=== PATIENT | female | born 1945 | race Caucasian/White ===

== ENCOUNTER → 2016-11-23 | Outpatient (CLI) | payer MEDICARE, OTHER ==
--- NOTE | 2016-11-24 09:39 | MM ---
Reason for exam: screening (asymptomatic). Last mammogram was performed 1 year and 1 month ago. History: Patient is postmenopausal. Benign excisional biopsy of the left breast, 2001. Took estrogen for 1 year beginning at age 55. Physical Findings: A clinical breast exam by your physician is recommended on an annual basis and results should be correlated with mammographic findings. MG 3D Screening Mammo W/Cad Bilateral CC and MLO view(s) were taken. Prior study comparison: November 03, 2015, bilateral MG screening mammo w CAD. September 26, 2014, right breast MG work up mamm w CAD RT. The breast tissue is almost entirely fat. There is chronic nodularity in the left breast. Right sided retroareolar nodule has enlarged. This finding is increased in size when compared with previous exams. ASSESSMENT: Incomplete: need additional imaging evaluation, BI-RAD 0 RECOMMENDATION: Ultrasound of the right breast. [facility] will attempt to contact patient to return for ultrasound.
== END | disposition home or self-care (01) ==
LOC: RADMAMWWP 10:41
PROVIDERS: ATTEND Family Medicine
DX: Z12.31 Encounter for screening mammogram for malignant neoplasm of breast (principal)
CPT/HCPCS: 77063; G0202

== ENCOUNTER → 2016-11-28 | Outpatient (CLI) | payer MEDICARE, OTHER ==
[2016-11-28 18:49] LABS: ALT 34 U/L (9-52); AST 26 U/L (14-36); Alkaline Phosphatase 70 U/L (38-126); Anion Gap 11 mmol/L; Blood Urea Nitrogen 19 mg/dL (7-17); Calcium 9.4 mg/dL (8.4-10.2); Carbon Dioxide 28 mmol/L (22-30); Chloride 104 mmol/L (98-107); Cholesterol 170 mg/dL (<200); Glucose 110 mg/dL (74-99); HDL Cholesterol 48 mg/dL (40-60); Non-African American GFR(MDRD) >60 (>60 ml/min/1.73 sqM); Potassium 3.9 mmol/L (3.5-5.1); Sodium 143 mmol/L (137-145); Total Bilirubin 0.6 mg/dL (0.2-1.3); Triglycerides 158 mg/dL (<150)
[2016-11-28 18:54] LABS: Aty Lym Flag Moderate; CH 29.4; CHCM 34.1; HCT 41.3 % (34.0-46.0); HDW 2.96; HGB 14.6 gm/dL (11.4-16.0); MCH 30.7 pg (25.0-35.0); MCHC 35.4 g/dL (31.0-37.0); MCV 86.6 fL (80.0-100.0); MPO Flag Slight; Mean Platelet Volume 7.4; RBC 4.77 m/uL (3.80-5.40); RDW 13.9 % (11.5-15.5); WBC 6.3 k/uL (3.8-10.6); WBC (Perox) 6.34
[2016-11-28 20:19] LABS: Add Differential Manual Differential
[2016-11-28 20:20] LABS: Nucleated Red Blood Cells 0 /100 WBC (0-0); Total Cells Counted 100
[2016-11-28 20:21] LABS: Manual Review Performed; RBC Morphology Normal
[2016-11-28 21:16] LABS: Hemoglobin A1C 5.3 % (4.2-6.1)
== END ==
LOC: MMGSC 09:48
PROVIDERS: ATTEND Family Medicine
DX: I10 Essential (primary) hypertension (principal); E78.5 Hyperlipidemia, unspecified; R73.02 Impaired glucose tolerance (oral)
CPT/HCPCS: 36415; 80053; 80061; 83036; 84439; 84443; 85025

== ENCOUNTER → 2016-11-29 | Outpatient (CLI) | payer MEDICARE, OTHER ==
--- NOTE | 2016-11-29 10:46 | USB ---
Reason for exam: additional evaluation requested from abnormal screening. History: Patient is postmenopausal. Benign excisional biopsy of the left breast, 2001. Took estrogen for 1 year beginning at age 55. Physical Findings: Nurse Summary: left BB 6 o'clock 2cm x 0.5cm near lesion/mole behind posterior (nurse cw). US Breast Workup Limited EUSEBIO Right breast ultrasound demonstrates a 0.7 x 0.8 x 0.6cm oval, cystic lesion at 9 o'clock, subareolar region, benign, corresponds to the mammographic finding. Left breast ultrasound demonstrates no finding, BB at 6 o'clock. These results were verbally communicated with the patient and result sheet given to the patient on 11/29/16. ASSESSMENT: Benign, BI-RAD 2 RECOMMENDATION: Return to routine screening mammogram schedule for both breasts. Manage on a clinical basis with regard to any suspicious palpable abnormalities.
== END | disposition home or self-care (01) ==
LOC: RADUSWWP 09:19
PROVIDERS: ATTEND Family Medicine
DX: R92.8 Other abnormal and inconclusive findings on diagnostic imaging of breast (principal)

== ENCOUNTER → 2017-05-25 | Outpatient (CLI) | payer MEDICARE, OTHER ==
[2017-05-25 18:34] LABS: ALT 30 U/L (9-52); AST 27 U/L (14-36); Alkaline Phosphatase 59 U/L (38-126); Anion Gap 6 mmol/L; Blood Urea Nitrogen 20 mg/dL (7-17); Calcium 9.9 mg/dL (8.4-10.2); Carbon Dioxide 30 mmol/L (22-30); Chloride 103 mmol/L (98-107); Glucose 98 mg/dL (74-99); Non-African American GFR(MDRD) >60 (>60 ml/min/1.73 sqM); Potassium 4.2 mmol/L (3.5-5.1); Sodium 139 mmol/L (137-145); Total Bilirubin 0.3 mg/dL (0.2-1.3)
== END ==
LOC: MMGSC 11:41
PROVIDERS: ATTEND Family Medicine
DX: Z51.81 Encounter for therapeutic drug level monitoring (principal)
CPT/HCPCS: 36415; 80053

== ENCOUNTER 2017-06-05 09:42 | Observation (INO) | payer MEDICARE, OTHER ==
--- NOTE | 2017-06-05 10:41 | ED ---
GI Bleed HPI - General Chief complaint: GI Bleed Stated complaint: rectal bleeding, abdominal pain, diarrhea Time Seen by Provider: 06/05/17 10:00 Source: patient, RN notes reviewed Mode of arrival: ambulatory Limitations: no limitations - History of Present Illness Initial comments: This is a 71-year-old female who states she had the onset of diarrhea last evening she had multiple episodes and then this morning had 3 episodes of bright red blood per rectum. She has some lower abdominal cramps no fevers chills or sweats she does feel somewhat weak no other symptoms reported. No history of diverticulitis no history of previous bowel surgeries. She states she has any history of hemorrhoids in the past. No other complaints this time MD complaint: gross hematochezia - Related Data Home Medications Medication Instructions Recorded Confirmed Albuterol Inhaler [Ventolin Hfa 1 - 2 puff INHALATION RT-Q6H PRN 06/05/17 Inhaler] Calcium Carbonate/Vitamin D3 1 tab PO DAILY 06/05/17 06/05/17 [Calcium 600-Vit D3 400 Caplet] Cetirizine HCl [Zyrtec] 10 mg PO HS 06/05/17 06/05/17 Fluticasone Nasal [place] [Flonase 1 spr EA NOSTRIL DAILY 06/05/17 06/05/17 Nasal [place]] Fluticasone Propionate [Flovent 1 puff INHALATION RT-DAILY 06/05/17 06/05/17 Hfa 44 mcg] Lisinopril-Hctz 20-25 mg 1 tab PO DAILY 06/05/17 06/05/17 [Zestoretic 20-25] Lovastatin [Mevacor] 20 mg PO HS 06/05/17 06/05/17 Multivitamins, Thera [Multivitamin 1 tab PO DAILY 06/05/17 06/05/17 (formulary)] [place]-3 Fatty Acids [[place]-3] 1,000 mg PO BID 06/05/17 06/05/17 Vitamin B Complex 1 cap PO DAILY 06/05/17 06/05/17 Allergies Allergy/AdvReac Type Severity Reaction Status Date / Time amoxicillin trihydrate Allergy Unknown Verified 06/05/17 10:07 [From Augmentin] potassium clavulanate Allergy Unknown Verified 06/05/17 10:07 [From Augmentin] Review of Systems ROS Statement: Those systems with pertinent positive or pertinent negative responses have been documented in the HPI. ROS Other: All systems not noted in ROS Statement are negative. Past Medical History Past Medical History: Asthma, Hypertension Additional Past Medical History / Comment(s): sciatica History of Any Multi-Drug Resistant Organisms: None Reported Past Surgical History: No Surgical Hx Reported Past Psychological History: No Psychological Hx Reported Smoking Status: Former smoker Past Alcohol Use History: None Reported Past Drug Use History: None Reported General Exam - General Exam Comments Initial Comments: This is a well-developed well-nourished awake alert oriented 3 female Limitations: no limitations General appearance: alert, in no apparent distress Head exam: Present: atraumatic, normocephalic, normal inspection Eye exam: Present: normal appearance, PERRL, EOMI. Absent: scleral icterus, conjunctival injection, periorbital swelling ENT exam: Present: mucous membranes dry Neck exam: Present: normal inspection. Absent: tenderness, meningismus, lymphadenopathy Respiratory exam: Present: normal lung sounds bilaterally. Absent: respiratory distress, wheezes, rales, rhonchi, stridor Cardiovascular Exam: Present: regular rate, normal rhythm, normal heart sounds. Absent: systolic murmur, diastolic murmur, rubs, gallop, clicks GI/Abdominal exam: Present: soft, normal bowel sounds, other (Mild discomfort to palpation no guarding rebound masses or bruits). Absent: distended, tenderness, guarding, rebound, rigid Rectal exam: Present: heme (+) stool. Absent: mass, tenderness Extremities exam: Present: normal inspection, full ROM, normal capillary refill. Absent: tenderness, pedal edema, joint swelling, calf tenderness Back exam: Present: normal inspection Neurological exam: Present: alert, oriented X3, CN II-XII intact Psychiatric exam: Present: normal affect, normal mood Skin exam: Present: warm, dry, intact, normal color. Absent: rash Course Vital Signs 06/05/17 06/05/17 06/05/17 09:45 09:55 10:25 Temperature 97.1 F L Pulse Rate 101 H 112 H 94 Respiratory 17 Rate Blood Pressure 195/79 144/81 146/78 O2 Sat by Pulse 95 95 96 Oximetry 06/05/17 06/05/17 06/05/17 11:18 12:18 13:05 Temperature Pulse Rate 70 64 71 Respiratory Rate Blood Pressure 159/72 130/62 132/75 O2 Sat by Pulse 97 99 Oximetry Medical Decision Making - Medical Decision Making I did discuss [employer] the patient and her as well as with the hospitalist patient will be admitted with consultation by GI. - Lab Data Result diagrams: 06/05/17 10:01 06/05/17 10:01 Lab Results 06/05/17 06/05/17 06/05/17 Range/Units 10:01 10:01 10:01 WBC 10.7 H (3.8-10.6) k/uL RBC 4.96 (3.80-5.40) m/uL Hgb 14.4 (11.4-16.0) gm/dL Hct 42.5 (34.0-46.0) % MCV 85.7 (80.0-100.0) fL MCH 29.0 (25.0-35.0) pg MCHC 33.8 (31.0-37.0) g/dL RDW 13.6 (11.5-15.5) % Plt Count 210 (150-450) k/uL Neutrophils % (Manual) 89 % Lymphocytes % (Manual) 11 % Neutrophils # (Manual) 9.52 H (1.3-7.7) k/uL Lymphocytes # (Manual) 1.18 (1.0-4.8) k/uL Nucleated RBCs 0 (0-0) /100 WBC Polychromasia Present PT (9.0-12.0) sec INR (<1.2) APTT (22.0-30.0) sec Sodium 140 (137-145) mmol/L Potassium 4.1 (3.5-5.1) mmol/L Chloride 103 (98-107) mmol/L Carbon Dioxide 28 (22-30) mmol/L Anion Gap 9 mmol/L BUN 21 H (7-17) mg/dL Creatinine 0.80 (0.52-1.04) mg/dL Est GFR (MDRD) Af Amer >60 (>60 ml/min/1.73 sqM) Est GFR (MDRD) Non-Af >60 (>60 ml/min/1.73 sqM) Glucose 144 H (74-99) mg/dL Calcium 9.5 (8.4-10.2) mg/dL Total Bilirubin 0.6 (0.2-1.3) mg/dL AST 25 (14-36) U/L ALT 35 (9-52) U/L Alkaline Phosphatase 71 (38-126) U/L Total Creatine Kinase 38 (30-135) U/L CK-MB (CK-2) 0.6 (0.0-2.4) ng/mL CK-MB (CK-2) Rel Index 1.6 Troponin I <0.012 (0.000-0.034) ng/mL Total Protein 7.3 (6.3-8.2) g/dL Albumin 4.1 (3.5-5.0) g/dL Stool Occult Blood (Negative) Blood Type Blood Type Recheck Antibody Screen Spec Expiration Date 06/05/17 06/05/17 06/05/17 Range/Units 10:01 10:01 10:56 WBC (3.8-10.6) k/uL RBC (3.80-5.40) m/uL Hgb (11.4-16.0) gm/dL Hct (34.0-46.0) % MCV (80.0-100.0) fL MCH (25.0-35.0) pg MCHC (31.0-37.0) g/dL RDW (11.5-15.5) % Plt Count (150-450) k/uL Neutrophils % (Manual) % Lymphocytes % (Manual) % Neutrophils # (Manual) (1.3-7.7) k/uL Lymphocytes # (Manual) (1.0-4.8) k/uL Nucleated RBCs (0-0) /100 WBC Polychromasia PT 10.1 (9.0-12.0) sec INR 1.0 (<1.2) APTT 23.8 (22.0-30.0) sec Sodium (137-145) mmol/L Potassium (3.5-5.1) mmol/L Chloride (98-107) mmol/L Carbon Dioxide (22-30) mmol/L Anion Gap mmol/L BUN (7-17) mg/dL Creatinine (0.52-1.04) mg/dL Est GFR (MDRD) Af Amer (>60 ml/min/1.73 sqM) Est GFR (MDRD) Non-Af (>60 ml/min/1.73 sqM) Glucose (74-99) mg/dL Calcium (8.4-10.2) mg/dL Total Bilirubin (0.2-1.3) mg/dL AST (14-36) U/L ALT (9-52) U/L Alkaline Phosphatase (38-126) U/L Total Creatine Kinase (30-135) U/L CK-MB (CK-2) (0.0-2.4) ng/mL CK-MB (CK-2) Rel Index Troponin I (0.000-0.034) ng/mL Total Protein (6.3-8.2) g/dL Albumin (3.5-5.0) g/dL Stool Occult Blood Positive H (Negative) Blood Type A Positive Blood Type Recheck CABO Indicated Antibody Screen NEGATIVE Spec Expiration Date 06/05/17 1100 - Radiology Data Radiology results: report reviewed (I did review the imaging and reports no acute findings), image reviewed Disposition Clinical Impression: GI bleed Disposition: ADMITTED IP TO THIS [facility] Condition: Stable Referrals: Laura Mcknight MD [Primary Care Provider] - 1-2 days
[2017-06-05 10:51] LABS: HCT 42.5 % (34.0-46.0); HGB 14.4 gm/dL (11.4-16.0); MCHC 33.8 g/dL (31.0-37.0); MCV 85.7 fL (80.0-100.0); Mean Platelet Volume 6.9; Platelet Count 210 k/uL (150-450); RBC 4.96 m/uL (3.80-5.40); RDW 13.6 % (11.5-15.5); WBC 10.7 k/uL (3.8-10.6)
[2017-06-05 10:56] LABS: ALT 35 U/L (9-52); AST 25 U/L (14-36); Albumin 4.1 g/dL (3.5-5.0); Alkaline Phosphatase 71 U/L (38-126); Anion Gap 9 mmol/L; Blood Urea Nitrogen 21 mg/dL (7-17); Calcium 9.5 mg/dL (8.4-10.2); Carbon Dioxide 28 mmol/L (22-30); Chloride 103 mmol/L (98-107); Glucose 144 mg/dL (74-99); Potassium 4.1 mmol/L (3.5-5.1); Sodium 140 mmol/L (137-145); Total Bilirubin 0.6 mg/dL (0.2-1.3); Total Protein 7.3 g/dL (6.3-8.2)
[2017-06-05] MEDS ORDERED: ACETAMINOPHEN IV (For NPO) 1,000 MG in SALINE 1 100ML.BAG IVPB STA (10:56)
[2017-06-05 11:03] LABS: Partial Thromboplastin Time 23.8 sec (22.0-30.0); Prothrombin Time 10.1 sec (9.0-12.0)
[2017-06-05 11:06] LABS: Lymphocytes # (M) 1.18 k/uL (1.0-4.8); Neutrophils # (M) 9.52 k/uL (1.3-7.7); Neutrophils % (M) 89 %; Nucleated Red Blood Cells 0 /100 WBC (0-0); Polychromasia Present; Total Cells Counted 100
[2017-06-05 11:15] LABS: Creatine Kinase 38 U/L (30-135)
[2017-06-05 11:28] LABS: Creatine Kinase MB 0.6 ng/mL (0.0-2.4); Troponin I <0.012 ng/mL (0.000-0.034)
--- NOTE | 2017-06-05 11:28 | XR ---
EXAMINATION TYPE: XR abdomen 1V DATE OF EXAM: 06/05/2017 COMPARISON: NONE HISTORY: Diarrhea Rectal bleeding. TECHNIQUE: 2 views FINDINGS: There is no sign of intestinal obstruction or pneumoperitoneum. Fecal pattern is normal. Th ere are chest leads. There are no pathologic calcifications over the kidneys. There is no sign of a m ass. IMPRESSION: Nonacute abdomen.
--- NOTE | 2017-06-05 11:29 | XR ---
EXAMINATION TYPE: XR chest 2V DATE OF EXAM: 06/05/2017 COMPARISON: NONE HISTORY: Diarrhea and rectal bleeding. Weakness TECHNIQUE: Frontal and lateral views of the chest are obtained. FINDINGS: Heart and mediastinum are normal. Lungs are clear. Diaphragm is normal. There are chest le ads. Bony thorax is intact. IMPRESSION: No active cardiopulmonary disease.
[2017-06-05] MEDS ORDERED: NALOXONE 0.4 MG/ML 1 ML VIAL IV PRN ×2 (13:48→14:23)
[2017-06-05] MEDS ORDERED: traMADol 50 MG TAB PO PRN (14:23)
[2017-06-05] MEDS ORDERED: ACETAMINOPHEN TAB 325 MG TAB PO PRN (14:23)
--- NOTE | 2017-06-05 15:27 | P.HPIM ---
History of Present Illness H&P Date: 06/05/17 Chief Complaint: Diarrhea and GI bleeding This is a 71-year-old female who states she had the onset of diarrhea last evening, she had multiple episodes and then this morning had 3 episodes of bright red blood per rectum. She has some lower abdominal cramps associated with the diarrhea. No fevers but she did have some chills. She does feel somewhat weak and ''pale''. Patient has been constipated in the past 2 weeks. She has history of hemorrhoids and did have some bleeding from them in the past. Her last colonoscopy was 5 years ago. She denied having any chest pain or shortness of breath, dizziness, nausea or vomiting, urinary symptoms. Review of Systems 12 point review of system was performed, negative except for HPI Past Medical History Past Medical History: Asthma, Hypertension Additional Past Medical History / Comment(s): sciatica History of Any Multi-Drug Resistant Organisms: None Reported Past Surgical History: No Surgical Hx Reported Past Psychological History: No Psychological Hx Reported Smoking Status: Former smoker Past Alcohol Use History: None Reported Past Drug Use History: None Reported Medications and Allergies Home Medications Medication Instructions Recorded Confirmed Type Albuterol Inhaler [Ventolin Hfa 1 - 2 puff INHALATION RT-Q6H PRN 06/05/17 History Inhaler] Calcium Carbonate/Vitamin D3 1 tab PO DAILY 06/05/17 06/05/17 History [Calcium 600-Vit D3 400 Caplet] Cetirizine HCl [Zyrtec] 10 mg PO HS 06/05/17 06/05/17 History Fluticasone Nasal [place] [Flonase 1 spr EA NOSTRIL DAILY 06/05/17 06/05/17 History Nasal [place]] Fluticasone Propionate [Flovent 1 puff INHALATION RT-DAILY 06/05/17 06/05/17 History Hfa 44 mcg] Lisinopril-Hctz 20-25 mg 1 tab PO DAILY 06/05/17 06/05/17 History [Zestoretic 20-25] Lovastatin [Mevacor] 20 mg PO HS 06/05/17 06/05/17 History Multivitamins, Thera [Multivitamin 1 tab PO DAILY 06/05/17 06/05/17 History (formulary)] [place]-3 Fatty Acids [[place]-3] 1,000 mg PO BID 06/05/17 06/05/17 History Vitamin B Complex 1 cap PO DAILY 06/05/17 06/05/17 History Allergies Allergy/AdvReac Type Severity Reaction Status Date / Time amoxicillin trihydrate Allergy Unknown Verified 06/05/17 10:07 [From Augmentin] potassium clavulanate Allergy Unknown Verified 06/05/17 10:07 [From Augmentin] Physical Exam Vitals: Vital Signs Temp Pulse Resp BP Pulse Ox 06/05/17 14:33 97.4 F L 79 16 153/67 97 06/05/17 14:05 96 149/70 95 06/05/17 13:05 71 132/75 06/05/17 12:18 64 130/62 99 06/05/17 11:18 70 159/72 97 06/05/17 10:25 94 146/78 96 06/05/17 09:55 112 H 144/81 95 06/05/17 09:45 97.1 F L 101 H 17 195/79 95 Intake and Output 06/05/17 06/05/17 06/05/17 06:59 14:59 22:59 Other: Weight 100.698 kg Patient Weight 06/06/17 06:59 Weight 100.698 kg Constitutional: No acute distress, conversant, pleasant Eyes:Anicteric sclerae, moist conjunctiva, no lid-lag, PERRLA, ENMT: Oropharynx clear, no erythema, exudates Neck: Supple, FROM, no masses, or JVD, No carotid bruits, No thyromegaly Lungs: Clear to auscultation, Clear to percussion, Normal respiratory effort, no accessory muscle use Cardiovascular: Heart regular in rate and rhythm, No murmurs, gallops, or rubs, No peripheral edema Abdominal: Soft, Nontender, no guarding, rebound or rigidity, Normoactive bowel sounds, No hepatomegaly, No splenomegaly, No palpable mass Skin: Normal temperature, tone, texture, turgor, no induration, No subcutaneous nodules, No rash, lesions, No ulcers Extremities: No digital cyanosis, No clubbing, Pedal pulses intact and symmetrical, Radial pulses intact and symmetrical, No calf tenderness Psychiatric: Alert and oriented to person, place and time, appropriate affect, intact judgement Neuro: Muscles Strength 5/5 in all 4 extremities, Sensation to light touch grossly present throughout, Cranial nerves II-XII grossly intact, no focal sensory deficits Results CBC & Chem 7: 06/05/17 10:01 06/05/17 10:01 Labs: Abnormal Lab Results - Last 24 Hours (Table) 06/05/17 06/05/17 06/05/17 Range/Units 10:01 10:01 10:56 WBC 10.7 H (3.8-10.6) k/uL Neutrophils # (Manual) 9.52 H (1.3-7.7) k/uL BUN 21 H (7-17) mg/dL Glucose 144 H (74-99) mg/dL Stool Occult Blood Positive H (Negative) Assessment and Plan Plan: #1 Acute diarrhea/lower GI bleeding: Possible infectious etiology versus hemorrhoidal bleeding/diverticulosis Admit to MedSurg IV fluids Cycle H&H Consult GI Currently hemoglobin is stable Labs were reviewed #2 Asthma, Hypertension: Stable Home medications #3 DVT prophylaxis SCDs
[2017-06-05 16:14] LABS: HCT 38.8 % (34.0-46.0); HGB 13.3 gm/dL (11.4-16.0); MCH 29.6 pg (25.0-35.0); MCHC 34.3 g/dL (31.0-37.0); MCV 86.4 fL (80.0-100.0); Mean Platelet Volume 6.9; Platelet Count 191 k/uL (150-450); RDW 13.6 % (11.5-15.5); WBC 9.6 k/uL (3.8-10.6)
[2017-06-05] MEDS: SODIUM CHLORIDE 0.9% 1,000 ML IV SCH ×2 (16:44→23:17)
[2017-06-05 16:55] VITALS: BMI 36.9
[2017-06-05] MEDS: IPRATROPIUM-ALBUTEROL 3 ML NEB INHALATION SCH (20:57)
[2017-06-05] MEDS: BUDESONIDE 0.5 MG/2 ML NEBU INHALATION SCH (20:57)
[2017-06-05] MEDS ORDERED: NON-FORMULARY DRUG (Omega-3 Fatty Acids [Omega-3] 1,000 MG) PO SCH (21:00)
[2017-06-05] MEDS: LORATADINE 10 MG TAB PO SCH (21:17)
[2017-06-05] MEDS: ATORVASTATIN 10 MG TAB PO SCH (21:17)
[2017-06-05] MEDS: PANTOPRAZOLE 40 MG/10 ML VIAL IV SCH (21:17)
[2017-06-05 22:37] LABS: HCT 39.1 % (34.0-46.0); HGB 13.3 gm/dL (11.4-16.0); MCH 29.5 pg (25.0-35.0); MCHC 33.9 g/dL (31.0-37.0); MCV 86.8 fL (80.0-100.0); Mean Platelet Volume 6.9; Platelet Count 187 k/uL (150-450); RBC 4.51 m/uL (3.80-5.40); RDW 13.8 % (11.5-15.5); WBC 10.4 k/uL (3.8-10.6)
[2017-06-06] MEDS: IPRATROPIUM-ALBUTEROL 3 ML NEB INHALATION SCH ×4 (06:29→18:55)
[2017-06-06 06:54] LABS: ALT 32 U/L (9-52); AST 17 U/L (14-36); Albumin 3.4 g/dL (3.5-5.0); Alkaline Phosphatase 57 U/L (38-126); Anion Gap 4 mmol/L; Blood Urea Nitrogen 17 mg/dL (7-17); Calcium 8.7 mg/dL (8.4-10.2); Carbon Dioxide 33 mmol/L (22-30); Chloride 103 mmol/L (98-107); Glucose 102 mg/dL (74-99); Magnesium 1.8 mg/dL (1.6-2.3); Phosphorus 3.7 mg/dL (2.5-4.5); Sodium 140 mmol/L (137-145); Total Bilirubin 0.6 mg/dL (0.2-1.3)
[2017-06-06 06:55] LABS: Potassium 4.1 mmol/L (3.5-5.1)
[2017-06-06 06:57] LABS: HCT 37.8 % (34.0-46.0); HGB 12.8 gm/dL (11.4-16.0); MCH 29.6 pg (25.0-35.0); MCHC 33.8 g/dL (31.0-37.0); MCV 87.5 fL (80.0-100.0); Mean Platelet Volume 7.1; Platelet Count 181 k/uL (150-450); RBC 4.32 m/uL (3.80-5.40); RDW 13.7 % (11.5-15.5); WBC 9.1 k/uL (3.8-10.6)
[2017-06-06] MEDS: LISINOPRIL-HCTZ 20-25 MG 1 EACH TAB PO SCH (07:59)
[2017-06-06] MEDS: B COMPLEX-VIT C-VIT E-ZINC 1 EACH TAB PO SCH (07:59)
[2017-06-06] MEDS: PANTOPRAZOLE 40 MG/10 ML VIAL IV SCH ×2 (07:59→19:33)
[2017-06-06] MEDS: FLUTICASONE 50MCG/SPRAY NASAL 16GM EA NOSTRIL SCH (07:59)
[2017-06-06] MEDS: CALCIUM CARB-VIT D 500MG-200UN 1 EACH TAB PO SCH (07:59)
[2017-06-06] MEDS: MULTIVITAMINS, THERA 1 EACH TAB PO SCH (07:59)
[2017-06-06] MEDS: BUDESONIDE 0.5 MG/2 ML NEBU INHALATION SCH ×2 (08:27→18:55)
[2017-06-06 09:47] LABS: Eosinophils # (M) 0.09 k/uL (0-0.7); Lymphocytes # (M) 1.73 k/uL (1.0-4.8); Monocytes # (M) 0.09 k/uL (0-1.0); Neutrophils # (M) 7.19 k/uL (1.3-7.7); Neutrophils % (M) 79 %; Nucleated Red Blood Cells 0 /100 WBC (0-0); Total Cells Counted 100
[2017-06-06 09:48] LABS: Poikilocytosis (M) Present
--- NOTE | 2017-06-06 15:12 | P.PN ---
Subjective Progress Note Date: 06/06/17 Principal diagnosis: BRBPR Still having bloody bowel movements, had 2 this morning. No dizziness or weakness. No shortness of breath. Objective - Vital Signs Vital signs: Vital Signs Temp 97.2 F L 06/06/17 08:00 Pulse 84 06/06/17 13:37 Resp 16 06/06/17 12:00 BP 152/82 06/06/17 12:00 Pulse Ox 95 06/06/17 12:00 Intake & Output 06/05/17 06/06/17 06/06/17 18:59 06:59 18:59 Intake Total 240 900 325 Balance 240 900 325 Weight 100.7 kg 100.8 kg Intake: Intake, IV Titration 900 Amount Sodium Chloride 0.9% 1, 900 000 ml @ 100 mls/hr IV . Q10H [facility] Rx#:[id number] Oral 240 325 Other: Voiding Method Toilet Toilet # Voids 2 1 1 # Bowel Movements 1 - Exam Constitutional: No acute distress, conversant, pleasant Eyes:Anicteric sclerae, moist conjunctiva, no lid-lag, PERRLA, ENMT: Oropharynx clear, no erythema, exudates Neck: Supple, FROM, no masses, or JVD, No carotid bruits, No thyromegaly Lungs: Clear to auscultation, Clear to percussion, Normal respiratory effort, no accessory muscle use Cardiovascular: Heart regular in rate and rhythm, No murmurs, gallops, or rubs, No peripheral edema Abdominal: Soft, Nontender, no guarding, rebound or rigidity, Normoactive bowel sounds, No hepatomegaly, No splenomegaly, No palpable mass Skin: Normal temperature, tone, texture, turgor, no induration, No subcutaneous nodules, No rash, lesions, No ulcers Extremities: No digital cyanosis, No clubbing, Pedal pulses intact and symmetrical, Radial pulses intact and symmetrical, No calf tenderness Psychiatric: Alert and oriented to person, place and time, appropriate affect, intact judgement Neuro: Muscles Strength 5/5 in all 4 extremities, Sensation to light touch grossly present throughout, Cranial nerves II-XII grossly intact, no focal sensory deficits - Labs CBC & Chem 7: 06/06/17 05:24 06/06/17 05:24 Labs: Abnormal Lab Results - Last 24 Hours (Table) 06/06/17 Range/Units 05:24 Carbon Dioxide 33 H (22-30) mmol/L Glucose 102 H (74-99) mg/dL Total Protein 6.0 L (6.3-8.2) g/dL Albumin 3.4 L (3.5-5.0) g/dL Assessment and Plan Plan: #1 Acute diarrhea/lower GI bleeding: Possible infectious etiology versus hemorrhoidal bleeding/diverticulosis Continue IV fluids Hgb stable Consult GI Labs were reviewed Recheck in am. #2 Asthma, Hypertension: Stable Home medications #3 DVT prophylaxis SCDs
[2017-06-06] MEDS: ATORVASTATIN 10 MG TAB PO SCH (19:33)
[2017-06-06] MEDS: LORATADINE 10 MG TAB PO SCH (19:33)
[2017-06-06] MEDS: SODIUM CHLORIDE 0.9% 1,000 ML IV SCH ×2 (19:36→21:08)
[2017-06-06] MEDS ORDERED: IPRATROPIUM-ALBUTEROL 3 ML NEB INHALATION PRN (19:48)
[2017-06-06] MEDS ORDERED: PEG 3350-NA SULF,BICARB,CL/KCL 4,000 ML BOTTLE PO ONE (20:51)
--- NOTE | 2017-06-06 23:50 | P.CONS ---
History of Present Illness - Reason for Consult Consult date: 06/06/17 Rectal bleeding - History of Present Illness The patient is a 71-year-old female who presented to the emergency room with the complaint of abdominal pain and diarrhea the night before that turned bloody on the day of admission. The patient's symptoms and bleeding has tapered off in the course of the day today. Her hemoglobin is relatively stable at 12.8. She denies any upper GI complaints, nausea, vomiting, or hematemesis. She had a prior colonoscopy more than 5 years ago. Review of Systems 12 point review of systems is, otherwise, not revealing. Past Medical History Past Medical History: Asthma, Hypertension Additional Past Medical History / Comment(s): sciatica History of Any Multi-Drug Resistant Organisms: None Reported Past Surgical History: No Surgical Hx Reported Past Psychological History: No Psychological Hx Reported Smoking Status: Former smoker Past Alcohol Use History: None Reported Past Drug Use History: None Reported Medications and Allergies Home Medications Medication Instructions Recorded Confirmed Type Albuterol Inhaler [Ventolin Hfa 1 - 2 puff INHALATION RT-Q6H PRN 06/05/17 History Inhaler] Calcium Carbonate/Vitamin D3 1 tab PO DAILY 06/05/17 06/05/17 History [Calcium 600-Vit D3 400 Caplet] Cetirizine HCl [Zyrtec] 10 mg PO HS 06/05/17 06/05/17 History Fluticasone Nasal [place] [Flonase 1 spr EA NOSTRIL DAILY 06/05/17 06/05/17 History Nasal [place]] Fluticasone Propionate [Flovent 1 puff INHALATION RT-DAILY 06/05/17 06/05/17 History Hfa 44 mcg] Lisinopril-Hctz 20-25 mg 1 tab PO DAILY 06/05/17 06/05/17 History [Zestoretic 20-25] Lovastatin [Mevacor] 20 mg PO HS 06/05/17 06/05/17 History Multivitamins, Thera [Multivitamin 1 tab PO DAILY 06/05/17 06/05/17 History (formulary)] [place]-3 Fatty Acids [[place]-3] 1,000 mg PO BID 06/05/17 06/05/17 History Vitamin B Complex 1 cap PO DAILY 06/05/17 06/05/17 History Allergies Allergy/AdvReac Type Severity Reaction Status Date / Time amoxicillin trihydrate Allergy Unknown Verified 06/05/17 10:07 [From Augmentin] potassium clavulanate Allergy Unknown Verified 06/05/17 10:07 [From Augmentin] Physical Exam Vitals: Vital Signs Temp Pulse Pulse Resp BP Pulse Ox 06/06/17 19:05 88 06/06/17 18:56 90 06/06/17 15:48 73 16 152/77 94 L 06/06/17 13:37 84 06/06/17 13:28 76 06/06/17 12:00 76 16 152/82 95 06/06/17 11:22 16 06/06/17 08:00 97.2 F L 92 16 148/76 95 06/06/17 04:00 98.8 F 73 16 127/67 94 L 06/06/17 00:00 97.1 F L 73 16 150/80 96 Intake and Output 06/06/17 06/06/17 06/06/17 06:59 14:59 22:59 Intake Total 900 325 600 Balance 900 325 600 Intake: Intake, IV Titration 900 Amount Sodium Chloride 0.9% 1, 900 000 ml @ 100 mls/hr IV . Q10H [facility] Rx#:[id number] Oral 325 600 Other: Voiding Method Toilet Toilet # Voids 1 1 Weight 100.8 kg General: Appeared stated age, very pleasant, in no acute distress Head and neck: Normocephalic and atraumatic. Conjunctivae pink and sclerae not icteric. Mucous membranes moist and pink. No masses in the neck or tracheal shifts Lungs: Clear to auscultation with no dullness to percussion Heart: Regular, no abnormal sounds, murmurs, gallops or friction rubs Abdomen: Soft, no masses, organomegalies or tenderness, bowel sounds present Extremities: No clubbing, cyanosis or edema Neurologic: Alert and oriented 3. Cranial nerves grossly intact. No gross sensory or motor abnormalities Results CBC & Chem 7: 06/06/17 05:24 06/06/17 05:24 Labs: Abnormal Lab Results - Last 24 Hours (Table) 06/06/17 Range/Units 05:24 Carbon Dioxide 33 H (22-30) mmol/L Glucose 102 H (74-99) mg/dL Total Protein 6.0 L (6.3-8.2) g/dL Albumin 3.4 L (3.5-5.0) g/dL Assessment and Plan Assessment: Abdominal pain and diarrhea with bleeding could be related to infectious, ischemic or self-limited colitis. Plan: Agree with your current management. I will go ahead and schedule the patient for colonoscopy for tomorrow. Further plans based on her course and findings.
[2017-06-07] MEDS: SODIUM CHLORIDE 0.9% 1,000 ML IV SCH ×2 (05:52→21:12)
[2017-06-07] MEDS: IPRATROPIUM-ALBUTEROL 3 ML NEB INHALATION SCH ×4 (08:04→19:41)
[2017-06-07] MEDS: BUDESONIDE 0.5 MG/2 ML NEBU INHALATION SCH ×2 (08:04→19:41)
[2017-06-07] MEDS ORDERED: PROPOFOL 10 MG/ML 20 ML VIAL IV ONE (14:10)
[2017-06-07] MEDS ORDERED: IV FLUID CONTINUATION 100 ML IV ONE (14:11)
[2017-06-07] MEDS ORDERED: IV FLUID CONTINUATION 1,000 ML IV ONE (14:34)
--- NOTE | 2017-06-07 15:03 | P.PCN ---
Date of Procedure: 06/07/17 Procedure(s) Performed: Procedure: Colonoscopy and biopsy. Preoperative diagnosis: Rectal bleeding. Postoperative diagnosis: Segmental colitis with skip areas involving the descending colon consistent with ischemic colitis, biopsies obtained to rule out other etiology (infectious/self limited). Preparation: GoLYTELY prep. Sedation: Was provided by anesthesia. Brief clinical history: The patient is a 71-year-old female who presented to the emergency room with the complaint of abdominal pain and diarrhea the night before that turned bloody on the day of admission. The patient's symptoms and bleeding has tapered off in the course of the day yesterday. Her hemoglobin is relatively stable at 12.8. She denies any upper GI complaints, nausea, vomiting , or hematemesis. She had a prior colonoscopy more than 5 years ago because of history of polyps. The details are summarized in the history and physical and dictated consultation and progress notes. This evaluation is to assess for a source of bleeding and to guide management. Procedure: With the patient on her left lateral decubitus position and after informed consent and adequate sedation, the perianal area was inspected and it did not show any fissures or fistulas. There were no masses felt on digital rectal examination. The Olympus CFQ 160L was used and was inserted in the rectum in the usual fashion and advanced to the cecum. There was a segment of colitis with skip areas involving the descending colon consistent with ischemic colitis with no evidence of ongoing bleeding. Proximal and distal to that segment the colon appeared normal. There were no significant polyps or other pathology. I obtained biopsies from the involved segment, then I retroflexed the endoscope in the rectum before the endoscope was withdrawn. The patient tolerated the procedure well. Plan: The patient was reassured and I discussed with her family. Will allow low -residue diet. Further plans based on her course. Would consider repeat colonoscopy in 5 years because of the history of polyps. She will follow up with you as planned.
--- NOTE | 2017-06-07 15:52 | P.PN ---
Subjective Progress Note Date: 06/07/17 Principal diagnosis: BRBPR The bleeding's amount has diminished. Objective - Vital Signs Vital signs: Vital Signs Temp 97.1 F L 06/07/17 04:00 Pulse 70 06/07/17 12:00 Resp 16 06/07/17 12:00 BP 148/66 06/07/17 12:00 Pulse Ox 96 06/07/17 12:00 Intake & Output 06/06/17 06/07/17 06/07/17 18:59 06:59 18:59 Intake Total 925 4200 200 Balance 925 4200 200 Weight 101.2 kg Intake: IV 200 Intake, IV Titration 1200 Amount Sodium Chloride 0.9% 1, 1200 000 ml @ 100 mls/hr IV . Q10H [facility] Rx#:[id number] Oral 925 3000 Other: Voiding Method Toilet Toilet # Voids 1 4 - Exam Constitutional: No acute distress, conversant, pleasant Eyes:Anicteric sclerae, moist conjunctiva, no lid-lag, PERRLA, ENMT: Oropharynx clear, no erythema, exudates Neck: Supple, FROM, no masses, or JVD, No carotid bruits, No thyromegaly Lungs: Clear to auscultation, Clear to percussion, Normal respiratory effort, no accessory muscle use Cardiovascular: Heart regular in rate and rhythm, No murmurs, gallops, or rubs, No peripheral edema Abdominal: Soft, Nontender, no guarding, rebound or rigidity, Normoactive bowel sounds, No hepatomegaly, No splenomegaly, No palpable mass Skin: Normal temperature, tone, texture, turgor, no induration, No subcutaneous nodules, No rash, lesions, No ulcers Extremities: No digital cyanosis, No clubbing, Pedal pulses intact and symmetrical, Radial pulses intact and symmetrical, No calf tenderness Psychiatric: Alert and oriented to person, place and time, appropriate affect, intact judgement Neuro: Muscles Strength 5/5 in all 4 extremities, Sensation to light touch grossly present throughout, Cranial nerves II-XII grossly intact, no focal sensory deficits - Labs CBC & Chem 7: 06/06/17 05:24 06/06/17 05:24 Assessment and Plan Plan: #1 Acute diarrhea/lower GI bleeding: Possible infectious etiology versus hemorrhoidal bleeding/diverticulosis Continue IV fluids Hgb stable Seen by GI---colonoscopy today Recheck hgb in am. #2 Asthma, Hypertension: Stable Home medications #3 DVT prophylaxis SCDs
[2017-06-07] MEDS: LISINOPRIL-HCTZ 20-25 MG 1 EACH TAB PO SCH (16:46)
[2017-06-07] MEDS: PANTOPRAZOLE 40 MG/10 ML VIAL IV SCH ×2 (16:46→20:51)
[2017-06-07] MEDS: B COMPLEX-VIT C-VIT E-ZINC 1 EACH TAB PO SCH (16:46)
[2017-06-07] MEDS: CALCIUM CARB-VIT D 500MG-200UN 1 EACH TAB PO SCH (16:47)
[2017-06-07] MEDS: FLUTICASONE 50MCG/SPRAY NASAL 16GM EA NOSTRIL SCH (16:47)
[2017-06-07] MEDS: MULTIVITAMINS, THERA 1 EACH TAB PO SCH (16:47)
[2017-06-07] MEDS: ATORVASTATIN 10 MG TAB PO SCH (20:51)
[2017-06-07] MEDS: LORATADINE 10 MG TAB PO SCH (20:51)
[2017-06-07 23:38] VITALS: RESP 18
[2017-06-08] MEDS: SODIUM CHLORIDE 0.9% 1,000 ML IV SCH ×2 (03:34→10:56)
[2017-06-08 06:37] LABS: HCT 36.1 % (34.0-46.0); HGB 11.4 gm/dL (11.4-16.0); MCH 28.3 pg (25.0-35.0); MCHC 31.6 g/dL (31.0-37.0); MCV 89.3 fL (80.0-100.0); Mean Platelet Volume 7.6; Platelet Count 167 k/uL (150-450); RBC 4.04 m/uL (3.80-5.40); RDW 15.2 % (11.5-15.5); WBC 6.6 k/uL (3.8-10.6)
[2017-06-08 06:45] LABS: Anion Gap 9 mmol/L; Blood Urea Nitrogen 13 mg/dL (7-17); Calcium 8.6 mg/dL (8.4-10.2); Carbon Dioxide 28 mmol/L (22-30); Chloride 106 mmol/L (98-107); Glucose 90 mg/dL (74-99); Magnesium 1.7 mg/dL (1.6-2.3); Phosphorus 3.7 mg/dL (2.5-4.5); Potassium 3.7 mmol/L (3.5-5.1); Sodium 143 mmol/L (137-145)
[2017-06-08 07:50] LABS: Lymphocytes # (M) 1.39 k/uL (1.0-4.8); Neutrophils # (M) 4.82 k/uL (1.3-7.7); Neutrophils % (M) 73 %; Nucleated Red Blood Cells 0 /100 WBC (0-0); Total Cells Counted 100
[2017-06-08 07:52] LABS: Poikilocytosis (M) Present
[2017-06-08] MEDS: BUDESONIDE 0.5 MG/2 ML NEBU INHALATION SCH (07:54)
[2017-06-08] MEDS: IPRATROPIUM-ALBUTEROL 3 ML NEB INHALATION SCH ×2 (07:54→11:29)
[2017-06-08] MEDS: PANTOPRAZOLE 40 MG/10 ML VIAL IV SCH (09:26)
[2017-06-08] MEDS: LISINOPRIL-HCTZ 20-25 MG 1 EACH TAB PO SCH (09:26)
[2017-06-08] MEDS: FLUTICASONE 50MCG/SPRAY NASAL 16GM EA NOSTRIL SCH (10:19)
[2017-06-08] MEDS: MULTIVITAMINS, THERA 1 EACH TAB PO SCH (10:55)
[2017-06-08] MEDS: CALCIUM CARB-VIT D 500MG-200UN 1 EACH TAB PO SCH (10:55)
[2017-06-08] MEDS: B COMPLEX-VIT C-VIT E-ZINC 1 EACH TAB PO SCH (10:55)
--- NOTE | 2017-06-08 12:25 | P.DS ---
Providers Date of admission: 06/05/17 13:49 Expected date of discharge: 06/08/17 Attending physician: Natalya Renner MD Consults: 06/05/17 13:49 Consult Physician Routine Consulting Provider: Bartolome Marroquin Consult Reason/Comments: GI bleed Do you want consulting provider notified?: Yes Primary care physician: [facility] Course: 71-year-old female who came in to the hospital because of diarrhea, she had multiple episodes and then started to have episodes of bright red blood per rectum. She had some lower abdominal cramps associated with the diarrhea. No fevers but she did have some chills. She also felt somewhat weak and ''pale''. Patient has been constipated in the past 2 weeks and for that she tried taking some laxatives. She has history of hemorrhoids and did have some bleeding from them in the past. Her last colonoscopy was 5 years ago. She denied having any chest pain or shortness of breath, dizziness, nausea or vomiting, urinary symptoms. Patient was admitted to the hospital, she continued to have episodes of bloody diarrhea initially but that got better later throughout the hospitalization. She was started on IV fluids. She was evaluated by GI who did a colonoscopy. The colonoscopy report indicated that she could have infectious process but the findings were most likely consistent with ischemic colitis. I discussed those findings with Dr. Marroquin who did the scope. Patient needs to be on low fiber diet for few days and then she can advance to regular. I told her to start taking baby aspirin after 1 week of the bleeding resolution. Time for discharge 35 min. Patient Condition at Discharge: Stable Plan - Discharge Summary Discharge Rx Participant: No New Discharge Prescriptions: New Acetaminophen Tab [Tylenol] 650 mg PO Q6HR PRN tab PRN Reason: Mild Pain Or Fever > 100.5 Aspirin EC [Ecotrin Low Dose] 81 mg PO DAILY 90 Days #90 tablet. Continue Fluticasone Propionate [Flovent Hfa 44 mcg] 1 puff INHALATION RT-DAILY Albuterol Inhaler [Ventolin Hfa Inhaler] 1 - 2 puff INHALATION RT-Q6H PRN PRN Reason: Shortness Of Breath Lovastatin [Mevacor] 20 mg PO HS Lisinopril-Hctz 20-25 mg [Zestoretic 20-25] 1 tab PO DAILY Fluticasone Nasal [place] [Flonase Nasal [place]] 1 spr EA NOSTRIL DAILY Cetirizine HCl [Zyrtec] 10 mg PO HS Vitamin B Complex 1 cap PO DAILY [place]-3 Fatty Acids [[place]-3] 1,000 mg PO BID Multivitamins, Thera [Multivitamin (formulary)] 1 tab PO DAILY Calcium Carbonate/Vitamin D3 [Calcium 600-Vit D3 400 Caplet] 1 tab PO DAILY Discharge Medication List Albuterol Inhaler [Ventolin Hfa Inhaler] 1 - 2 puff INHALATION RT-Q6H PRN [History] Calcium Carbonate/Vitamin D3 [Calcium 600-Vit D3 400 Caplet] 1 tab PO DAILY 06/22 [History] Cetirizine HCl [Zyrtec] 10 mg PO HS 06/05/17 [History] Fluticasone Nasal [place] [Flonase Nasal [place]] 1 spr EA NOSTRIL DAILY 06/05/17 [ History] Fluticasone Propionate [Flovent Hfa 44 mcg] 1 puff INHALATION RT-DAILY 06/05/17 [History] Lisinopril-Hctz 20-25 mg [Zestoretic 20-25] 1 tab PO DAILY 06/05/17 [History] Lovastatin [Mevacor] 20 mg PO HS 06/05/17 [History] Multivitamins, Thera [Multivitamin (formulary)] 1 tab PO DAILY 06/05/17 [History ] [place]-3 Fatty Acids [[place]-3] 1,000 mg PO BID 06/05/17 [History] Vitamin B Complex 1 cap PO DAILY 06/05/17 [History] Acetaminophen Tab [Tylenol] 650 mg PO Q6HR PRN tab 06/08/17 [Rx] Aspirin EC [Ecotrin Low Dose] 81 mg PO DAILY 90 Days #90 tablet. 06/08/17 [Rx] Follow up Appointment(s)/Referral(s): Laura Mcknight MD [Primary Care Provider] - 06/14/17 11:00 am Patient Instructions/Handouts: Gastrointestinal Bleeding (DC), Colonoscopy (DC)
[2017-06-08 16:28] VITALS: BP 136/65; PULSE 70
[2017-06-08 16:29] VITALS: TEMP 98
== END 2017-06-08 13:20 | disposition home or self-care (01) ==
LOC: EC 09:42 → 6SEL 13:49
PROVIDERS: ADMIT Internal Medicine; ATTEND Internal Medicine
DX: K55.9 Vascular disorder of intestine, unspecified (principal); J45.909 Unspecified asthma, uncomplicated; I10 Essential (primary) hypertension; M54.30 Sciatica, unspecified side; Z87.19 Personal history of other diseases of the digestive system; Z79.899 Other long term (current) drug therapy; Z79.51 Long term (current) use of inhaled steroids; Z88.0 Allergy status to penicillin; Z88.8 Allergy status to other drugs, medicaments and biological substances; Z87.891 Personal history of nicotine dependence; Z86.010 Personal history of colon polyps
CPT/HCPCS: 96376; 96375; 96374; 99285; 36415; 94640 ×4; 86900; 86901; 88305; 80053 ×2; 80048; 82550; 82553; 83735 ×2; 84100 ×2; 84484; 85025 ×3; 85027; 85610; 85730; 86850; 82272; 87324; 71046; 74018; 45380; G0378 ×4; J0131; J2704; C9113 ×4

== ENCOUNTER → 2017-06-29 | Outpatient (CLI) | payer MEDICARE, OTHER ==
--- NOTE | 2017-06-29 15:57 | XR ---
EXAMINATION TYPE: XR lumbar spine 2 or 3V DATE OF EXAM: 06/29/2017 CLINICAL HISTORY: pain TECHNIQUE: Three views of the lumbar spine are submitted. COMPARISON: None. FINDINGS: There are 5 lumbar type vertebral bodies identified. The lumbar spine shows satisfactory alignment w ithout evidence of acute fracture or dislocation. Vertebral body heights are within normal limits. Severe multilevel degenerative disc space narrowing and spondylosis. The overlying soft tissue appea rs unremarkable. IMPRESSION: No acute fracture or dislocation is seen in the lumbar spine. ICD 10 NO FRACTURE, INITIAL EVALUATION
== END | disposition home or self-care (01) ==
LOC: RADXRMAIN 14:23
PROVIDERS: ATTEND Family Medicine
DX: M54.5 Low back pain (principal)
CPT/HCPCS: 72100

== ENCOUNTER → 2017-12-28 | Outpatient (CLI) | payer MEDICARE, OTHER ==
--- NOTE | 2018-01-03 09:09 | MM ---
Reason for exam: screening (asymptomatic). Last mammogram was performed 1 year and 1 month ago. History: Patient is postmenopausal. Benign excisional biopsy of the left breast, 2001. Took estrogen for 1 year beginning at age 55. Physical Findings: A clinical breast exam by your physician is recommended on an annual basis and results should be correlated with mammographic findings. MG 3D Screening Mammo W/Cad Bilateral CC, MLO, and XCCL view(s) were taken. Prior study comparison: November 29, 2016, bilateral US breast workup limited EUSEBIO. November 23, 2016, bilateral MG 3d screening mammo w/cad. November 03, 2015, bilateral MG screening mammo w CAD. September 18, 2014, bilateral MG screening mammo w CAD. There are scattered fibroglandular densities. There is a stable right retroareolar mass back to 2014. No suspicious abnormality. No significant changes when compared with prior studies. ASSESSMENT: Benign, BI-RAD 2 RECOMMENDATION: Routine screening mammogram of both breasts in 1 year.
== END | disposition home or self-care (01) ==
LOC: RADMAMWWP 09:39
PROVIDERS: ATTEND Family Medicine
DX: Z12.31 Encounter for screening mammogram for malignant neoplasm of breast (principal)
CPT/HCPCS: 77063; 77067

== ENCOUNTER → 2019-03-07 | Outpatient (CLI) | payer MEDICARE, OTHER ==
--- NOTE | 2019-03-08 13:21 | MM ---
Reason for exam: screening (asymptomatic). Last mammogram was performed 1 year and 2 months ago. History: Patient is postmenopausal. Benign excisional biopsy of the left breast, 2001. Took estrogen for 1 year beginning at age 55. Physical Findings: A clinical breast exam by your physician is recommended on an annual basis and results should be correlated with mammographic findings. MG 3D Screening Mammo W/Cad Bilateral CC and MLO view(s) were taken. Prior study comparison: December 28, 2017, bilateral MG 3d screening mammo w/cad. November 23, 2016, bilateral MG 3d screening mammo w/cad. There are scattered fibroglandular densities. There is a oval circumscribed right retroareolar mass, proves cyst on ultrasound of 2017. No suspicious abnormality. No significant changes when compared with prior studies. ASSESSMENT: Benign, BI-RAD 2 RECOMMENDATION: Routine screening mammogram of both breasts in 1 year.
== END | disposition home or self-care (01) ==
LOC: RADMAMWWP 09:43
PROVIDERS: ATTEND Family Medicine
DX: Z12.31 Encounter for screening mammogram for malignant neoplasm of breast (principal)
CPT/HCPCS: 77063; 77067

== ENCOUNTER → 2020-03-23 | Outpatient (CLI) | payer MEDICARE, OTHER ==
--- NOTE | 2020-03-30 10:27 | MM ---
Reason for exam: screening (asymptomatic). Last mammogram was performed 1 year and 1 month ago. History: Patient is postmenopausal. Benign excisional biopsy of the left breast, 2001. Took estrogen for 1 year beginning at age 55. Physical Findings: A clinical breast exam by your physician is recommended on an annual basis and results should be correlated with mammographic findings. MG 3D Screening Mammo W/Cad Bilateral CC and MLO view(s) were taken. Prior study comparison: March 07, 2019, bilateral MG 3d screening mammo w/cad. December 28, 2017, bilateral MG 3d screening mammo w/cad. There are scattered fibroglandular densities. There is chronic nodularity in the right breast. Moles inferiorly on the left. No significant changes when compared with prior studies. ASSESSMENT: Benign, BI-RAD 2 RECOMMENDATION: Routine screening mammogram of both breasts in 1 year.
== END | disposition home or self-care (01) ==
LOC: RADMAMWWP 14:02
PROVIDERS: ATTEND Family Medicine
DX: Z12.31 Encounter for screening mammogram for malignant neoplasm of breast (principal)
CPT/HCPCS: 77063; 77067

== ENCOUNTER → 2020-10-07 | Outpatient (CLI) | payer MEDICARE, OTHER ==
--- NOTE | 2020-10-07 11:04 | XR ---
EXAMINATION TYPE: XR foot complete LT DATE OF EXAM: 10/07/2020 CLINICAL HISTORY: pain TECHNIQUE: Frontal, lateral and oblique images of the left foot are obtained. COMPARISON: None. FINDINGS: There is no acute fracture/dislocation evident. Hallux valgus deformity of the great toe m ild in degree. The joint spaces appear within normal limits. The overlying soft tissue appears unre markable. IMPRESSION: There is no acute fracture or dislocation. ICD 10 NO FRACTURE, INITIAL EVALUATION
== END | disposition home or self-care (01) ==
LOC: RADXRMAIN 10:36
PROVIDERS: ATTEND Podiatrist Foot Surgery
DX: M79.672 Pain in left foot (principal)

== ENCOUNTER → 2021-05-05 | Outpatient (CLI) | payer MEDICARE, OTHER ==
--- NOTE | 2021-05-07 10:39 | MM ---
Reason for exam: screening (asymptomatic). Last mammogram was performed 1 year and 1 month ago. History: Patient is postmenopausal. Benign excisional biopsy of the left breast, 2001. Took estrogen for 1 year beginning at age 55. Physical Findings: A clinical breast exam by your physician is recommended on an annual basis and results should be correlated with mammographic findings. MG 3D Screening Mammo W/Cad Bilateral CC, MLO, and XCCL view(s) were taken. Prior study comparison: March 23, 2020, bilateral MG 3d screening mammo w/cad. March 07, 2019, bilateral MG 3d screening mammo w/cad. The breast tissue is heterogeneously dense. This may lower the sensitivity of mammography. Stable benign calcifications. There is no discrete abnormality. No significant changes when compared with prior studies. ASSESSMENT: Benign, BI-RAD 2 RECOMMENDATION: Routine screening mammogram of both breasts in 1 year.
== END | disposition home or self-care (01) ==
LOC: RADMAMWWP 11:22
PROVIDERS: ATTEND Family Medicine
DX: Z12.31 Encounter for screening mammogram for malignant neoplasm of breast (principal); Z78.0 Asymptomatic menopausal state
CPT/HCPCS: 77063; 77067

== ENCOUNTER 2021-08-31 12:56 | Emergency (ER) | payer MEDICARE, OTHER ==
[2021-08-31 13:21] VITALS: BP 167/87; PULSE 95; RESP 18; TEMP 97.8
[2021-08-31] MEDS ORDERED: PANTOPRAZOLE 40 MG/10 ML VIAL IVP STA (13:44)
[2021-08-31] MEDS ORDERED: SODIUM CHLORIDE 0.9% 1,000 ML IV STA (13:44)
--- NOTE | 2021-08-31 13:47 | ED ---
General Adult HPI - General Chief complaint: GI Bleed Stated complaint: rectal bleeding Time Seen by Provider: 08/31/21 13:20 Source: patient, RN notes reviewed Mode of arrival: ambulatory Limitations: no limitations - History of Present Illness Initial comments: Patient is a pleasant 75-year-old female presenting to the emergency Department with complaints of diarrhea. Onset of soda was yesterday after eating a couple of coney dogs. Patient had 4-5 episodes last night. Patient did have some cramping at the time however that has near resolved. Patient had a mother episode this morning. Patient did have some blood with wiping following that th is morning. Patient is not on any blood thinners. Aspirin daily. No nausea vomiting. Discomfort of abdominal cramping is very mild at this time. Patient does have history of similar symptoms previously once associated with colitis approximately 4 years ago. - Related Data Home Medications Medication Instructions Recorded Confirmed Cetirizine HCl [Zyrtec] 10 mg PO HS 06/05/17 08/31/21 Fluticasone Nasal [place] [Flonase 1 spr EA NOSTRIL DAILY 06/05/17 08/31/21 Nasal [place]] Fluticasone Propionate [Flovent 1 puff INHALATION RT-DAILY 06/05/17 08/31/21 Hfa 44 mcg] Lisinopril-Hctz 20-25 mg 1 tab PO DAILY 06/05/17 08/31/21 [Zestoretic 20-25] Lovastatin [Mevacor] 20 mg PO HS 06/05/17 08/31/21 Multivitamins, Thera [Multivitamin 1 tab PO DAILY 06/05/17 08/31/21 (formulary)] Vitamin B Complex 1 cap PO DAILY 06/05/17 08/31/21 Albuterol Sulfate [Ventolin HFA] 2 puff INHALATION RT-Q4H PRN 08/31/21 08/31/21 Aspirin EC [Ecotrin Low Dose] 81 mg PO HS 08/31/21 08/31/21 Calcium Carbonate/Vitamin D3 1 tab PO DAILY 08/31/21 08/31/21 [Calcium 600-D3 20 mcg (800 Unit)] Verapamil HCl [Verapamil ER] 120 mg PO HS 08/31/21 08/31/21 Wheat Dextrin [Benefiber] 1 - 2 tsp PO DAILY 08/31/21 08/31/21 Previous Rx's Medication Instructions Recorded metroNIDAZOLE [Flagyl] 500 mg PO TID #15 tab 08/31/21 Allergies Allergy/AdvReac Type Severity Reaction Status Date / Time amoxicillin trihydrate Allergy Rash/Hives Verified 08/31/21 15:42 [From Augmentin] all over body potassium clavulanate Allergy Verified 08/31/21 15:42 [From Augmentin] Review of Systems ROS Statement: Those systems with pertinent positive or pertinent negative responses have been documented in the HPI. ROS Other: All systems not noted in ROS Statement are negative. Constitutional: Denies: fever Eyes: Denies: eye pain ENT: Denies: ear pain Respiratory: Denies: cough Cardiovascular: Denies: chest pain Endocrine: Denies: fatigue Gastrointestinal: Reports: abdominal pain, diarrhea. Denies: nausea, vomiting Genitourinary: Denies: dysuria Musculoskeletal: Denies: back pain Skin: Denies: rash Neurological: Denies: weakness Past Medical History Past Medical History: Asthma, Hypertension Additional Past Medical History / Comment(s): sciatica History of Any Multi-Drug Resistant Organisms: None Reported Past Surgical History: No Surgical Hx Reported Additional Past Surgical History / Comment(s): Luke recorder Past Psychological History: No Psychological Hx Reported Smoking Status: Never smoker Past Alcohol Use History: None Reported Past Drug Use History: None Reported General Exam Limitations: no limitations General appearance: alert, in no apparent distress Head exam: Present: normocephalic Eye exam: Present: normal appearance Neck exam: Present: normal inspection Respiratory exam: Present: normal lung sounds bilaterally Cardiovascular Exam: Present: regular rate, normal rhythm GI/Abdominal exam: Present: soft, tenderness (Mild diffuse tenderness). Absent: distended Rectal exam: Present: bloody stool (Minimal) Extremities exam: Present: normal inspection Neurological exam: Present: alert Psychiatric exam: Present: normal affect, normal mood Skin exam: Present: normal color Course Vital Signs 08/31/21 13:17 Temperature 97.8 F Pulse Rate 95 Respiratory 18 Rate Blood Pressure 167/87 O2 Sat by Pulse 97 Oximetry Medical Decision Making - Medical Decision Making Patient reevaluated and resting comfortably in bed. Patient and family updated on results and plan. - Lab Data Result diagrams: 08/31/21 14:03 08/31/21 14:40 Lab Results 08/31/21 08/31/21 08/31/21 Range/Units 14:03 14:05 14:05 WBC 8.1 (3.8-10.6) k/uL RBC 4.62 (3.80-5.40) m/uL Hgb 13.6 (11.4-16.0) gm/dL Hct 41.5 (34.0-46.0) % MCV 89.8 (80.0-100.0) fL MCH 29.4 (25.0-35.0) pg MCHC 32.8 (31.0-37.0) g/dL RDW 14.0 (11.5-15.5) % Plt Count 226 (150-450) k/uL MPV 7.5 Neutrophils % (Manual) 82 % Lymphocytes % (Manual) 18 % Monocytes % (Manual) 1 % Eosinophils % (Manual) 1 % Neutrophils # (Manual) 6.64 (1.3-7.7) k/uL Lymphocytes # (Manual) 1.46 (1.0-4.8) k/uL Monocytes # (Manual) 0.08 (0-1.0) k/uL Eosinophils # (Manual) 0.08 (0-0.7) k/uL Nucleated RBCs 0 (0-0) /100 WBC Manual Slide Review Performed Poikilocytosis (manual Present Anisocytosis (manual) Present PT 10.9 (9.0-12.0) sec INR 1.0 (<1.2) APTT 25.2 (22.0-30.0) sec Sodium (137-145) mmol/L Potassium (3.5-5.1) mmol/L Chloride (98-107) mmol/L Carbon Dioxide (22-30) mmol/L Anion Gap mmol/L BUN (7-17) mg/dL Creatinine (0.52-1.04) mg/dL Est GFR (CKD-EPI)AfAm (>60 ml/min/1.73 sqM) Est GFR (CKD-EPI)NonAf (>60 ml/min/1.73 sqM) Glucose (74-99) mg/dL Calcium (8.4-10.2) mg/dL Total Bilirubin (0.2-1.3) mg/dL AST (14-36) U/L ALT (4-34) U/L Alkaline Phosphatase (38-126) U/L Total Protein (6.3-8.2) g/dL Albumin (3.5-5.0) g/dL Stool Occult Blood Positive H (Negative) 08/31/21 Range/Units 14:40 WBC (3.8-10.6) k/uL RBC (3.80-5.40) m/uL Hgb (11.4-16.0) gm/dL Hct (34.0-46.0) % MCV (80.0-100.0) fL MCH (25.0-35.0) pg MCHC (31.0-37.0) g/dL RDW (11.5-15.5) % Plt Count (150-450) k/uL MPV Neutrophils % (Manual) % Lymphocytes % (Manual) % Monocytes % (Manual) % Eosinophils % (Manual) % Neutrophils # (Manual) (1.3-7.7) k/uL Lymphocytes # (Manual) (1.0-4.8) k/uL Monocytes # (Manual) (0-1.0) k/uL Eosinophils # (Manual) (0-0.7) k/uL Nucleated RBCs (0-0) /100 WBC Manual Slide Review Poikilocytosis (manual Anisocytosis (manual) PT (9.0-12.0) sec INR (<1.2) APTT (22.0-30.0) sec Sodium 139 (137-145) mmol/L Potassium 3.7 (3.5-5.1) mmol/L Chloride 106 (98-107) mmol/L Carbon Dioxide 27 (22-30) mmol/L Anion Gap 6 mmol/L BUN 22 H (7-17) mg/dL Creatinine 0.83 (0.52-1.04) mg/dL Est GFR (CKD-EPI)AfAm 81 (>60 ml/min/1.73 sqM) Est GFR (CKD-EPI)NonAf 70 (>60 ml/min/1.73 sqM) Glucose 103 H (74-99) mg/dL Calcium 8.8 (8.4-10.2) mg/dL Total Bilirubin 0.6 (0.2-1.3) mg/dL AST 25 (14-36) U/L ALT 16 (4-34) U/L Alkaline Phosphatase 62 (38-126) U/L Total Protein 6.9 (6.3-8.2) g/dL Albumin 3.6 (3.5-5.0) g/dL Stool Occult Blood (Negative) - Radiology Data Radiology results: report reviewed (Computed tomography scan concern for colitis) Disposition Clinical Impression: Colitis Disposition: HOME SELF-CARE Condition: Stable Instructions (If sedation given, give patient instructions): Gastrointestinal Bleeding (ED) Additional Instructions: Prescription sent to pharmacy. Please follow-up with primary care physician in the next day or 2 for recheck. Consider colonoscopy. Return for increased bleeding, lightheadedness, shortness of breath, abdominal pain, worsening symptoms or other concerns. Prescriptions: metroNIDAZOLE [Flagyl] 500 mg PO TID #15 tab Is patient prescribed a controlled substance at d/c from ED?: No Referrals: Laura Mcknight MD [Primary Care Provider] - 1-2 days Time of Disposition: 17:11
[2021-08-31 14:27] LABS: HCT 41.5 % (34.0-46.0); HGB 13.6 gm/dL (11.4-16.0); MCH 29.4 pg (25.0-35.0); MCHC 32.8 g/dL (31.0-37.0); MCV 89.8 fL (80.0-100.0); Mean Platelet Volume 7.5; Platelet Count 226 k/uL (150-450); RBC 4.62 m/uL (3.80-5.40); WBC 8.1 k/uL (3.8-10.6)
[2021-08-31 14:37] LABS: Partial Thromboplastin Time 25.2 sec (22.0-30.0); Prothrombin Time 10.9 sec (9.0-12.0)
[2021-08-31 14:52] LABS: Albumin 3.6 g/dL (3.5-5.0); Calcium 8.8 mg/dL (8.4-10.2); Potassium 3.7 mmol/L (3.5-5.1); Total Bilirubin 0.6 mg/dL (0.2-1.3); Total Protein 6.9 g/dL (6.3-8.2)
[2021-08-31 15:02] LABS: Nucleated Red Blood Cells 0 /100 WBC (0-0)
[2021-08-31 15:03] LABS: Eosinophils # (M) 0.08 k/uL (0-0.7); Lymphocytes # (M) 1.46 k/uL (1.0-4.8); Monocytes # (M) 0.08 k/uL (0-1.0); Neutrophils # (M) 6.64 k/uL (1.3-7.7); Neutrophils % (M) 82 %; Total Cells Counted 200
[2021-08-31 15:04] LABS: Anisocytosis (M) Present; Poikilocytosis (M) Present
--- NOTE | 2021-08-31 15:58 | CT ---
EXAMINATION TYPE: CT abdomen pelvis w con DATE OF EXAM: 08/31/2021 COMPARISON: No previous CT scan is available for comparison HISTORY: Bright red rectal bleeding and cramping. CT DLP: 2057.4 mGycm Automated exposure control for dose reduction was used. TECHNIQUE: Helical acquisition of images was performed from the lung bases through the pelvis. CONTRAST: Performed without Oral Contrast and with IV Contrast, patient injected with 100ml mL of Isovue 300. FINDINGS: LUNG BASES: Right basal posterior medial subpleural pulmonary reticulation and minimal groundglass op acities, nonspecific. Milder changes are seen on the left side. Coronary arterial atherosclerotic reggie cifications. LIVER/GB: No definite hepatic focal lesion. Dependent densities within the gallbladder, possibly repr esenting calculi. No signs of acute cholecystitis. PANCREAS: No significant abnormality is seen. SPLEEN: No significant abnormality is seen. ADRENALS: No significant abnormality is seen. KIDNEYS: Tiny right renal cyst versus tiny angiomyolipoma, otherwise unremarkable kidneys. FREE AIR: No free air is visualized. RETROPERITONEAL ADENOPATHY: None visualized REPRODUCTIVE ORGANS: Questionable posterior uterine fibroid measuring 2.3 cm, for correlation with el ective pelvic ultrasound assessment. No gross adnexal mass. URINARY BLADDER: Unremarkable PELVIC ADENOPATHY: None visualized. OSSEOUS STRUCTURES: Degenerative changes of the lower lumbar spine. No gross aggressive bone lesion. BOWEL: Unremarkable nondistended stomach, duodenum and small bowel. Diffuse mild wall thickening of the descending colon with surrounding minimal fat stranding suggestive of focal colitis. No evidence of colonic obstruction. Grossly unremarkable remainder of the colon. Normal appendix. OTHER: Arterial atherosclerotic calcifications. No sizable ascites. IMPRESSION: Mild wall thickening of the descending colon suggestive of acute colitis which could be inflammatory, infectious, pseudomembranous or ischemic, for clinical correlation and further workup. Other finding s as described above.
== END 2021-08-31 17:52 | disposition home or self-care (01) ==
LOC: EC 12:56
DX: K52.9 Noninfective gastroenteritis and colitis, unspecified (principal); I10 Essential (primary) hypertension; J45.909 Unspecified asthma, uncomplicated; Z79.82 Long term (current) use of aspirin; Z79.51 Long term (current) use of inhaled steroids; Z79.899 Other long term (current) drug therapy
CPT/HCPCS: 36415; 80053; 85025; 85610; 85730; 82272; 74177; 99284; 96374; 96361 ×3; C9113; Q9967

== ENCOUNTER → 2022-04-19 | Outpatient (CLI) | payer MEDICARE, OTHER ==
[2022-04-19 19:03] LABS: African American GFR (CKD) 72.5 (60.0-200.0); Anion Gap 10.8 mmol/L (10.00-18.00); BUN/Creat Ratio 21.44 Ratio (12.00-20.00); Blood Urea Nitrogen 19.3 mg/dL (9.0-27.0); Calcium 9.8 mg/dL (8.7-10.3); Carbon Dioxide 27.2 mmol/L (20.0-27.5); Non-African American GFR(CKD) 62.5 (60.0-200.0); Potassium 4.3 mmol/L (3.5-5.5)
== END | disposition home or self-care (01) ==
LOC: LABWHC1 10:58
PROVIDERS: ATTEND Internal Medicine Interventional Cardiology
DX: I10 Essential (primary) hypertension (principal)
CPT/HCPCS: 36415; 80048

== ENCOUNTER → 2022-05-19 | Outpatient (CLI) | payer MEDICARE, OTHER ==
--- NOTE | 2022-05-20 12:05 | MM ---
Reason for Exam: Screening (asymptomatic). Last screening mammogram was performed 12 month(s) ago. Patient History: Menarche at age 13. First Full-Term at age 24. Premenopausal. Estrogen for 1 year from age 55 until age 56. 2001, Benign Excisional Biopsy on the left side. Paternal cousin had ovarian cancer, age 80. Risk Values: Norma 5 year model risk: 1.9%. NCI Lifetime model risk: 4.0%. Prior Study Comparison: 03/07/2019 Bilateral Screening Mammogram, [facility]ED WITH [facility]. 03/23/2020 Bilateral Screening Mammogram, MERGED WITH [facility]. 05/05/2021 Bilateral Screening Mammogram, MERGED WITH [facility]. Tissue Density: There are scattered fibroglandular densities. Findings: Analyzed By CAD. Pattern appears stable. Chronic nodularities in the subareolar right breast. No suspicious groups of microcalcifications, spiculated or lobular masses, architectural distortion or other secondary signs of malignancy are mammographically apparent. Overall Assessment: Benign, BI-RAD 2 Management: Screening Mammogram of both breasts in 1 year. A negative mammogram report should not preclude additional follow up of suspicious palpable abnormalities. Patient should continue monthly self breast exam. A clinical breast exam by your physician is recommended on an annual basis and results should be correlated with mammographic findings. Electronically signed and approved by: Vitaly Millan D.O. Radiologis
== END | disposition home or self-care (01) ==
LOC: RADMAMWWP 14:41
PROVIDERS: ATTEND Family Medicine
DX: Z12.31 Encounter for screening mammogram for malignant neoplasm of breast (principal); Z98.890 Other specified postprocedural states
CPT/HCPCS: 77063; 77067

== ENCOUNTER 2022-12-21 04:26 | Inpatient (IN) | payer MEDICARE ==
[2022-12-21] MEDS ORDERED: NALOXONE 0.4 MG/ML 1 ML VIAL IV PRN (05:16)
--- NOTE | 2022-12-21 05:18 | ED ---
General Adult HPI - General Chief complaint: ENT Stated complaint: Nose bleed Time Seen by Provider: 12/21/22 04:47 Source: patient Mode of arrival: ambulatory Limitations: no limitations - History of Present Illness Initial comments: Dictation was produced using [employer] dictation software. please excuse any grammatical, word or spelling errors. Chief Complaint: 77-year-old female transferred from [facility] for epistaxis History of Present Illness: Patient 77-year-old female she is not on anticoagulation medications. Patient had several hours of nose bleeding prior to being transferred to our hospital. Patient initially seen at [facility] were left nasal packing was placed. Apparently patient knows bleeding was dif ficult to control. She was sent here for ENT consult. The ROS documented in this emergency department record has been reviewed and confirmed by me. Those systems with pertinent positive or negative responses have been documented in the HPI. All other systems are other negative and/or noncontributory. - Related Data Home Medications Medication Instructions Recorded Confirmed Cetirizine HCl [Zyrtec] 10 mg PO HS 06/05/17 08/31/21 Fluticasone Nasal [place] [Flonase 1 spr EA NOSTRIL DAILY 06/05/17 08/31/21 Nasal [place]] Fluticasone Propionate [Flovent 1 puff INHALATION RT-DAILY 06/05/17 08/31/21 Hfa 44 mcg] Lisinopril-Hctz 20-25 mg 1 tab PO DAILY 06/05/17 08/31/21 [Zestoretic 20-25] Lovastatin [Mevacor] 20 mg PO HS 06/05/17 08/31/21 Multivitamins, Thera [Multivitamin 1 tab PO DAILY 06/05/17 08/31/21 (formulary)] Vitamin B Complex 1 cap PO DAILY 06/05/17 08/31/21 Albuterol Sulfate [Ventolin HFA] 2 puff INHALATION RT-Q4H PRN 08/31/21 08/31/21 Aspirin EC [Ecotrin Low Dose] 81 mg PO HS 08/31/21 08/31/21 Calcium Carbonate/Vitamin D3 1 tab PO DAILY 08/31/21 08/31/21 [Calcium 600-D3 20 mcg (800 Unit)] Verapamil HCl [Verapamil ER] 120 mg PO HS 08/31/21 08/31/21 Wheat Dextrin [Benefiber] 1 - 2 tsp PO DAILY 08/31/21 08/31/21 Previous Rx's Medication Instructions Recorded metroNIDAZOLE [Flagyl] 500 mg PO TID #15 tab 08/31/21 Allergies Allergy/AdvReac Type Severity Reaction Status Date / Time amoxicillin trihydrate Allergy Rash/Hives Verified 12/21/22 04:45 [From Augmentin] all over body potassium clavulanate Allergy Rash/Hives Verified 12/21/22 04:45 [From Augmentin] Review of Systems ROS Statement: Those systems with pertinent positive or pertinent negative responses have been documented in the HPI. ROS Other: All systems not noted in ROS Statement are negative. Past Medical History Past Medical History: Asthma, Hypertension Additional Past Medical History / Comment(s): sciatica History of Any Multi-Drug Resistant Organisms: None Reported Past Surgical History: No Surgical Hx Reported Additional Past Surgical History / Comment(s): Luke recorder Past Psychological History: No Psychological Hx Reported Smoking Status: Never smoker Past Alcohol Use History: None Reported Past Drug Use History: None Reported General Exam - General Exam Comments Initial Comments: PHYSICAL EXAM: General Impression: Alert and oriented x3, not in acute distress HEENT: Normocephalic atraumatic, extra-ocular movements intact, pupils equal and reactive to light bilaterally, mucous membranes moist, left Rhino nasal packing in place Cardiovascular: Heart regular rate and rhythm Chest: Able to complete full sentences, no retractions, no tachypnea Abdomen: abdomen soft, non-tender, non-distended, no organomegaly Musculoskeletal: Pulses present and equal in all extremities, no peripheral edema Motor: no focal deficits noted Neurological: CN II-XII grossly intact, no focal motor or sensory deficits noted Skin: Intact with no visualized rashes Psych: Normal affect and mood Limitations: no limitations Course Vital Signs 12/21/22 04:39 Temperature 98.6 F Pulse Rate 84 Respiratory 16 Rate Blood Pressure 137/80 O2 Sat by Pulse 95 Oximetry Medical Decision Making - Medical Decision Making Was pt. sent in by a medical professional or institution (, PA, CALIBRATION TESTER, urgent care, hospital, or prison...) When possible be specific @ -No Did you speak to anyone other than the patient for history (EMS, parent, family, police, friend...)? What history was obtained from this source @ -No Did you review nursing and triage notes (agree or disagree)? Why? @ -I reviewed and agree with nursing and triage notes Were old charts reviewed (outside hosp., previous admission, EMS record, old EKG, old radiological studies, urgent care reports/EKG's, prison records)? Report findings @ -No old charts were reviewed Differential Diagnosis (chest pain, altered mental status, abdominal pain women, abdominal pain men, vaginal bleeding, musculoskeletal, weakness, fever, dyspnea, syncope, headache, dizziness, GI bleed, back pain, seizure, CVA, palpatations, mental health)? @ -not applicable EKG interpreted by me (3pts min.). @ -None done X-rays interpreted by me (1pt min.). @ -None done CT interpreted by me (1pt min.). @ -None done U/S interpreted by me (1pt. min.). @ -None done What testing was considered but not performed or refused? (CT, X-rays, U/S, labs)? Why? @ -None What meds were considered but not given or refused? Why? @ -None Did you discuss the management of the patient with other professionals (professionals i.e. , PA, CALIBRATION TESTER, lab, RT, psych nurse, healthcare social worker, roving hand, teacher, sheriff officer, case making machine operator)? Give summary @ -Case discussed with Dr. Rosario's agreeable with patient being admitted observation with ENT on consult Was smoking cessation discussed for >3mins.? @ -No Was critical care preformed (if so, how long)? @ -No Were there social determinants of health that impacted care today? How? (Homelessness, low income, unemployed, alcoholism, drug addiction, transportation, low edu. Level, literacy, decrease access to med. care, senior care, rehab)? @ -No Was there de-escalation of care discussed even if they declined (Discuss DNR or withdrawal of care, Hospice)? DNR status @ -No What co-morbidities impacted this encounter? (DM, HTN, Smoking, COPD, CAD, Cancer, CVA, ARF, Chemo, Hep., AIDS, mental health diagnosis, sleep apnea, morbid obesity)? @ -None Was patient admitted / discharged? Hospital course, mention meds given and route, prescriptions, significant lab abnormalities, going to OR and other pertinent info. @ -77-year-old female presents emergency department for persistent epistaxis. Vital signs stable. Nasal packing was placed in the right naris. Bleeding appeared to be under control. Patient be admitted to observation with consultation to your nose and throat. Undiagnosed new problem with uncertain prognosis? @ -No Drug Therapy requiring intensive monitoring for toxicity (Heparin, Nitro, Insulin, Cardizem)? @ -No Were any procedures done? @ -No Diagnosis/symptom? Acute, or Chronic, or Acute on Chronic? Uncomplicated (without systemic symptoms) or Complicated (systemic symptoms)? @ -Epistaxis Side effects of treatment? @ -No Exacerbation, Progression, or Severe Exacerbation? @ -No Poses a threat to life or bodily function? How? (Chest pain, USA, DC, pneumonia, PE, COPD, DKA, ARF, appy, cholecystitis, CVA, Diverticulitis, Homicidal, Suicidal, threat to staff... and all critical care pts) @ -yes Disposition Clinical Impression: Epistaxis Disposition: ADMITTED IP TO THIS HOSP Condition: Fair Referrals: Laura Mcknight MD [Primary Care Provider] - 1-2 days Decision Time: 05:18
[2022-12-21] MEDS: SODIUM CHLORIDE 0.9% 1,000 ML IV SCH ×2 (06:59→23:26)
[2022-12-21] MEDS ORDERED: ALBUTEROL NEBULIZED 2.5 MG/3 ML INHALATION PRN (08:47)
[2022-12-21] MEDS: hydroCHLOROthiazide 25 MG TAB PO SCH (09:33)
[2022-12-21] MEDS: lisinopriL 20 MG TAB PO SCH ×2 (09:33→20:31)
[2022-12-21] MEDS: CALCIUM CARB-VIT D 500 MG-5 MCG TAB PO SCH (09:35)
[2022-12-21] MEDS: FOLIC ACID-VIT B COMPLEX-VIT C 1 CAP PO SCH (09:35)
[2022-12-21] MEDS: MULTIVITAMINS, THERA 1 EACH TAB PO SCH (09:35)
[2022-12-21 10:46] LABS: HCT 37.1 % (34.0-46.0); HGB 12.6 gm/dL (11.4-16.0); MCH 29.8 pg (25.0-35.0); MCV 87.7 fL (80.0-100.0); Mean Platelet Volume 8.1; Platelet Count 202 k/uL (150-450); RBC 4.23 m/uL (3.80-5.40); RDW 13.9 % (11.5-15.5); WBC 9.6 k/uL (3.8-10.6)
[2022-12-21 10:53] LABS: Partial Thromboplastin Time 24.2 sec (22.0-30.0); Prothrombin Time 10.7 sec (9.0-12.0)
[2022-12-21 11:15] LABS: ALT 22 U/L (4-34); AST 24 U/L (14-36); African American GFR (CKD) >90 (>60 ml/min/1.73 sqM); Albumin 3.8 g/dL (3.5-5.0); Albumin/Globulin Ratio 1.3; Alkaline Phosphatase 68 U/L (38-126); Anion Gap 7 mmol/L; Blood Urea Nitrogen 28 mg/dL (7-17); Calcium 8.6 mg/dL (8.4-10.2); Carbon Dioxide 28 mmol/L (22-30); Chloride 107 mmol/L (98-107); Glucose 122 mg/dL (74-99); Non-African American GFR(CKD) 86 (>60 ml/min/1.73 sqM); Potassium 4.1 mmol/L (3.5-5.1); Sodium 142 mmol/L (137-145); Total Bilirubin 0.4 mg/dL (0.2-1.3); Total Protein 6.8 g/dL (6.3-8.2)
--- NOTE | 2022-12-21 11:58 | P.HPIM ---
History of Present Illness H&P Date: 12/21/22 Patient is a 77-year-old female with history of hypertension, dyslipidemia, asthma, prior epistaxis presenting with acute epistaxis started last night. It was difficult to control, she then presented to an outside hospital. Due to persistent epistaxis, patient was transferred to our facility. She claims that she might have swallowed some blood. However, she denies any other significant symptoms such as chest pain, shortness of breath, lightheadedness, palpitations. She does have history of epistaxis which usually happens with dry nose. She claims that she was picking at her nose recently, and might have led to bleeding. She does not have any other bleeding disorders. She will only take baby aspirin. Denies taking any degranulation. She does have history of palpit ations, has a loop recorder in place. In the ED, temperature was 98.6, blood pressure 137/80, saturating 95% on room air. Hemoglobin 12.6, coags within normal limits, creatinine 0.67. ENT consulted. Patient admitted for observation. Pertinent positives and negatives as discussed in HPI, a complete review of systems was performed and all other systems are negative. Patient seen and examined at bedside. Vital signs reviewed General: nontoxic, no distress, appears at stated age Derm: warm, dry Head: atraumatic, normocephalic, symmetric Eyes: EOMI, no lid lag, anicteric sclera, pupils equal round reactive to light ENT: Has nasal packing in place, stained with blood Neck: No thyromegaly, supple Mouth: no lip lesion, mucus membranes moist Cardiovascular: S1S2 reg, no murmur, no edema Lungs: clear to auscultation bilateral, no rhonchi, no rales, no wheeze, no accessory muscle use Abdominal: soft, nontender to palpation, no guarding, no appreciable organomegaly Ext: no gross muscle atrophy, muscle strength muscle strength 5 out of 5 in all 4 extremities, no contractures Neuro: CN II-XII grossly intact Psych: Alert, oriented, appropriate affect Assessment/Plan: Active: Acute epistaxis Prerenal azotemia History of palpitations status post loop recorder -ENT consulted -Hemoglobin stable -Hemodynamically stable -Azotemia likely in the setting of ingesting blood -Patient has an outpatient cardiology appointment set up Chronic: Hypertension Dyslipidemia Asthma The patient is admitted with an anticipated less than 2 midnight stay as o bservation status for evaluation of epistaxis. Surrogate decision-maker: spouse CODE STATUS:full code DVT prophylaxis: scd Anticipated discharge date: Today or tomorrow Anticipated discharge place: Home A total of 55 minutes was spent on the care of this complex patient more than 50% of the time was spent in counseling and care coordination. Past Medical History Past Medical History: Asthma, Hyperlipidemia, Hypertension, Osteoarthritis (OA) Additional Past Medical History / Comment(s): sciatica; irregular heart rate History of Any Multi-Drug Resistant Organisms: None Reported Past Surgical History: No Surgical Hx Reported Additional Past Surgical History / Comment(s): loop recorder ; colonoscopies Past Anesthesia/Blood Transfusion Reactions: No Reported Reaction Past Psychological History: No Psychological Hx Reported Smoking Status: Never smoker Past Alcohol Use History: None Reported Past Drug Use History: None Reported Medications and Allergies Home Medications Medication Instructions Recorded Confirmed Type Cetirizine HCl [Zyrtec] 10 mg PO HS 06/05/17 12/21/22 History Fluticasone Nasal [place] [Flonase 1 spr EA NOSTRIL DAILY 06/05/17 12/21/22 Histor y Nasal [place]] Fluticasone Propionate [Flovent 1 puff INHALATION RT-DAILY 06/05/17 12/21/22 H istory Hfa 44 mcg] Multivitamins, Thera [Multivitamin 1 tab PO DAILY 06/05/17 12/21/22 History (formulary)] Vitamin B Complex 1 cap PO DAILY 06/05/17 12/21/22 History Albuterol Sulfate [Ventolin HFA] 2 puff INHALATION RT-Q4H PRN 08/31/21 12/21/22 History Aspirin EC [Ecotrin Low Dose] 81 mg PO HS 08/31/21 12/21/22 History Calcium Carbonate/Vitamin D3 1 tab PO DAILY 08/31/21 12/21/22 History [Calcium 600-D3 20 mcg (800 Unit)] Verapamil HCl [Verapamil ER] 120 mg PO HS 08/31/21 12/21/22 History Wheat Dextrin [Benefiber] 1 - 2 tsp PO DAILY 08/31/21 12/21/22 History Ezetimibe [Zetia] 10 mg PO HS 12/21/22 12/21/22 History Rosuvastatin [Crestor] 20 mg PO HS 12/21/22 12/21/22 History hydroCHLOROthiazide [Hydrodiuril] 25 mg PO Q2D 12/21/22 12/21/22 History lisinopriL [Zestril] 20 mg PO BID 12/21/22 12/21/22 History Allergies Allergy/AdvReac Type Severity Reaction Status Date / Time amoxicillin trihydrate Allergy Rash/Hives Verified 12/21/22 07:55 [From Augmentin] all over body potassium clavulanate Allergy Rash/Hives Verified 12/21/22 07:55 [From Augmentin] Physical Exam Vitals: Vital Signs Temp Pulse Pulse Resp BP BP Pulse Ox 12/21/22 08:30 96.8 F L 86 16 128/78 93 L 12/21/22 06:18 97.6 F 79 18 166/73 97 12/21/22 06:09 77 18 172/80 97 12/21/22 04:39 98.6 F 84 16 137/80 95 Intake and Output 12/20/22 12/21/22 12/21/22 22:59 06:59 14:59 Intake Total 20 Balance 20 Intake: Intake, IV Titration 20 Amount Sodium Chloride 0.9% 1, 20 000 ml @ 20 mls/hr IV . Q24H [facility] Rx#:[id number] Other: Voiding Method Toilet Weight 104.326 kg Results CBC & Chem 7: 12/21/22 10:24 12/21/22 10:24 Labs: Abnormal Lab Results - Last 24 Hours (Table) 12/21/22 Range/Units 10:24 BUN 28 H (7-17) mg/dL Glucose 122 H (74-99) mg/dL Thrombosis Risk Factor Assmnt - Choose All That Apply Any of the Below Risk Factors Present?: Yes Each Factor Represents 1 point: Obesity (BMI >25) Other Risk Factors: Yes Each Risk Factor Represents 3 Points: Age 75 years or older Thrombosis Risk Factor Assessment Total Risk Factor Score: 4 Thrombosis Risk Factor Assessment Level: Moderate Risk
[2022-12-21 14:17] LABS: Lymphocytes # (M) 0.86 k/uL (1.0-4.8); Monocytes # (M) 0.19 k/uL (0-1.0); Neutrophils # (M) 8.54 k/uL (1.3-7.7); Neutrophils % (M) 89 %; Nucleated Red Blood Cells 0 /100 WBC (0-0); Total Cells Counted 100
[2022-12-21 14:18] LABS: RBC Morphology Normal
[2022-12-21] MEDS ORDERED: TEMAZEPAM 15 MG CAP PO PRN (14:18)
[2022-12-21] MEDS: ALPRAZolam 0.5 MG TAB PO PRN (15:39)
[2022-12-21] MEDS: LEVOFLOXACIN 750MG-D5W PMX 750 MG in DEXTROSE/WATER 1 150ML.BAG IVPB SCH (16:15)
[2022-12-21] MEDS: ACETAMINOPHEN TAB 325 MG TAB PO PRN (18:38)
[2022-12-21] MEDS: EZETIMIBE 10 MG TAB PO SCH (20:31)
[2022-12-21] MEDS: ATORVASTATIN 40 MG TAB PO SCH (20:31)
[2022-12-21] MEDS: VERAPAMIL SR 120 MG TABLET.ER PO SCH (20:31)
--- NOTE | 2022-12-22 00:12 | CONS ---
CONSULTATION REASON FOR CONSULTATION: Epistaxis. HISTORY OF PRESENT ILLNESS: The patient is a pleasant 77-year-old female who was recently seen in [facility] Emergency Room for evaluation of nosebleed. The patient states at approximately 10:30 p.m. on 12/20/2022, she developed a significant nosebleed. She attempted to control it at home by using tissue, cotton etc. She was unsuccessful and therefore she went to [facility] and was seen by the emergency room doctor. He attempted to stop the bleeding and eventually packed the left nostril with a Rhino Rocket. He inflated the balloons with either water or air. Because [facility] no longer has ENT services, the patient was transferred to [facility] Emergency Room Department. I was contacted by the emergency room doctor at approximately 5 a.m. on 12/21/2022 and at that time was informed that the patient had a left-sided epistaxis and that the [facility] ER doctor had inserted a balloon in the right side. He also noted that the patient has severe right-sided septal deviation. I advised him that most likely the bleeding from the left side was simply coming around the back posteriorly and coming out of the right side. I advised him that I did not think she has any bleeding from the right side. Because of her situation, I advised that she be admitted to the hospital. The patient does not have a previous history of any significant nosebleed. 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 She was also informed that these septal perforations have a tendency to bleed periodically. She does not use any type of anticoagulant, blood thinners, or aspirin. She has, in the past, used Flonase nasal spray for seasonal allergies. I advised her that she should never use any of the nasal steroid sprays because they can promote nasal bleeding. She is also on Zyrtec for seasonal allergies. She has a history of COPD. PAST MEDICAL HISTORY: She has allergies to Augmentin. CURRENT MEDICATIONS: 1. Albuterol. 2. HydroDIURIL. 3. Verapamil. 4. Zetia. 5. Crestor. 6. Flovent. 7. Zyrtec. 8. Zestril. REVIEW OF SYSTEMS: CARDIOVASCULAR: Positive for hypertension. RESPIRATORY: Positive for COPD/emphysema. METABOLIC/ENDOCRINE: Positive for hypercholesterolemia. Remainder of the review of systems unremarkable. PHYSICAL EXAMINATION: GENERAL: The patient is a 77-year-old female who was alert and cooperative. HEENT: She is not actively bleeding at this time. Both nostrils have nasal packing present, although the packing on the right side is only partially in and is probably not very effective. The patient is normocephalic. Tympanic membranes are normal. Middle ear spaces are free of any fluid or infection. Pupils equal, round, reactive to light and accommodation. Intranasal examination is not possible because the patient has bilateral nasal packing. Examination of oropharynx reveals patient has a large well-formed clot that is hanging down the left posterior pharyngeal gutter. No attempt was made to remove this out of concern of possibly starting up more bleeding. The patient was complaining that she had a fullness sensation in her throat. Palpation of the neck, cranial nerves II through XII, the remainder of the head and neck exam is unremarkable. CHEST: Both lung cheng are clear to percussion and auscultation. CARDIOVASCULAR: The patient is in regular sinus rhythm. Peripheral pulses are bilaterally symmetrical. ABDOMEN: There is no evidence any masses, megaly, or tenderness. The abdomen is soft. SKIN: Unremarkable. Musculoskeletal, neurological, and the remainder of the physical exam is unremarkable. IMPRESSION: 1. Left-sided epistaxis. 2. COPD/emphysema. 3. Hypertension. 4. Hypercholesterolemia. PLAN: At this point, I advised the patient that she will be in the hospital for several days in an effort to allow the bleeding to stop. During that period of time, she will probably have minor bleeds off and on. Fortunately, she is not on any blood thinners and therefore should make the process more rapid. I do not want to remove any packing because it may have to be reinserted and every time packing is reinserted, it stirs up which causes more bleeding spots on the nasal mucosa. The packing on the right side is not completely in and I do not think it is very effective. This is most likely due to the patient's severe septal deviation. She has a probable hole in her nasal septum and this is the source most likely of her bleeding. Over the course of the next several days, I will check and evaluate the patient and at the appropriate time, I will start to withdraw the packing. If the patient should sneeze the packing on the right side, then I recommend that it be left on the right side. I do not think she is going to sneeze or extrude the packing on the left side because both the anterior and posterior balloons are inflated. The patient states that she does not have any appetite and I advised this is most likely is because she has both of her nostrils packed and therefore she cannot smell and this affects her ability to even taste food. I am going to advance her however to a regular diet to a diet as tolerated and I encouraged her to try and this may eventually dislodge the blood clot in the back of her throat which she will probably either spit out or swallow. In addition, this was going to increase her intravenous rate from 20 mL/hr to 100 mL/hr. I will personally provide her with an oxygen face tent, which I secured from the surgery department, and this will allow her to receive oxygenated-humidified air that she can breathe through her mouth because a face mask would be ineffective. I am also going to order Restoril 30 mg p.o. q.h.s. p.r.n. only and Xanax 0.5 mg p.o. b.i.d. for anxiety only. In addition, we are going to put her on Levaquin 750 mg daily because of her Augmentin allergy/penicillin allergy. I will see the patient on a daily basis and keep you advised as to her progress. I anticipate that she will most likely be an over the weekend, but if my evaluation changes, then I will keep you informed. I want to take this opportunity to thank you for allowing me to assist in the care of your patient. If I could be of any further assistance, please feel free to call my office. I will continue to follow this patient on a daily basis. Spent approximately 1 hour with this patient. MMODL / IJN: [id number] /
[2022-12-22] MEDS: SODIUM CHLORIDE 0.9% 1,000 ML IV SCH ×3 (05:37→21:25)
[2022-12-22] MEDS: FLUTICASONE 44 MCG INHALER INHALATION SCH (07:37)
[2022-12-22] MEDS: MULTIVITAMINS, THERA 1 EACH TAB PO SCH (08:52)
[2022-12-22] MEDS: lisinopriL 20 MG TAB PO SCH ×2 (08:52→20:29)
[2022-12-22] MEDS: CALCIUM CARB-VIT D 500 MG-5 MCG TAB PO SCH (08:52)
[2022-12-22] MEDS: FOLIC ACID-VIT B COMPLEX-VIT C 1 CAP PO SCH (08:52)
[2022-12-22] MEDS: ACETAMINOPHEN TAB 325 MG TAB PO PRN ×2 (08:59→19:44)
--- NOTE | 2022-12-22 11:47 | P.PN ---
Subjective Progress Note Date: 12/22/22 Hospital Course: 77-year-old female with history of hypertension, dyslipidemia, asthma, prior epistaxis presenting with acute epistaxis. In the ED, temperature was 98.6, blood pressure 137/80, saturating 95% on room air. Hemoglobin 12.6, coags within normal limits, creatinine 0.67. ENT consulted. Patient has nasal packing in place, will likely need to stay a few more days and slowly withdraw the nasal packing by ENT. Subjective: Patient seen and examined at bedside. Has irritative nose due to nasal packing. Denies any other complaints. Pertinent positives and negatives as discussed above, a complete review of systems was performed and all other systems are negative. Vitals Signs Reviewed. General: nontoxic, no distress, appears at stated age Derm: warm, dry Head: atraumatic, normocephalic, symmetric Eyes: EOMI, no lid lag, anicteric sclera, pupils equal round reactive to light ENT: Has nasal packing in place, stained with blood Neck: No thyromegaly, supple Mouth: no lip lesion, mucus membranes moist Cardiovascular: S1S2 reg, no murmur, no edema Lungs: clear to auscultation bilateral, no rhonchi, no rales, no wheeze, no accessory muscle use Abdominal: soft, nontender to palpation, no guarding, no appreciable organomegaly Ext: no gross muscle atrophy, muscle strength muscle strength 5 out of 5 in all 4 extremities, no contractures Neuro: CN II-XII grossly intact Psych: Alert, oriented, appropriate affect Data Reviewed Today: Pertinent Labs: No new labs today Imaging: No new imaging today Assessment and Plan: Active: Acute epistaxis Prerenal azotemia History of palpitations status post loop recorder -ENT following, will likely withdraw nasal packing slowly, patient will likely need to stay in the hospital over the next few days -Also started on levofloxacin IV every 24 hours. Also started on normal saline 100 mL an hour per surgery -Hemoglobin stable, repeat CBC tomorrow -Hemodynamically stable -Azotemia likely in the setting of ingesting blood, repeat BMP tomorrow -Patient has an outpatient cardiology appointment set up Chronic: Hypertension Dyslipidemia Asthma DVT ppx: SCDs Code status: Full code Anticipated discharge place: Home Anticipated discharge time: Pending clinical course Objective - Vital Signs Vital signs: Vital Signs Temp 99.1 F 12/22/22 07:14 Pulse 86 12/22/22 07:14 Resp 18 12/22/22 07:14 BP 149/78 12/22/22 07:14 Pulse Ox 96 12/22/22 07:40 FiO2 28 12/22/22 07:40 Intake & Output 12/21/22 12/22/22 12/22/22 18:59 06:59 18:59 Intake Total 200 Balance 200 Intake: Oral 200 Other: Voiding Method Toilet Toilet Toilet # Voids 3 1 - Labs CBC & Chem 7: 12/21/22 10:24 12/21/22 10:24 Labs: Abnormal Lab Results - Last 24 Hours (Table) 12/21/22 Range/Units 10:24 Neutrophils # (Manual) 8.54 H (1.3-7.7) k/uL Lymphocytes # (Manual) 0.86 L (1.0-4.8) k/uL
[2022-12-22] MEDS: LEVOFLOXACIN 750MG-D5W PMX 750 MG in DEXTROSE/WATER 1 150ML.BAG IVPB SCH (16:45)
[2022-12-22] MEDS: VERAPAMIL SR 120 MG TABLET.ER PO SCH (20:29)
[2022-12-22] MEDS: ATORVASTATIN 40 MG TAB PO SCH (20:29)
[2022-12-22] MEDS: EZETIMIBE 10 MG TAB PO SCH (20:29)
--- NOTE | 2022-12-23 00:54 | PN ---
PROGRESS NOTE SUBJECTIVE: Vital signs are stable. The patient has not had any further bleeding episodes. She states that she is able to eat. She also states that the face tent that I was able to provide her from the surgical department, is very helpful and nice with respect to breathing. The face tent allows her to have the humidified air without having a face mask resting on her nose. OBJECTIVE: HEENT: The patient is normocephalic. Both nasal packings are intact. I do not see any oozing around either packing. Examination of oropharynx reveals the patient has apparently swallowed the previously noted blood clot that was noted on the left pharyngeal gutter at the time of my initial examination of her yesterday. Most likely, this is the reason why she is able to swallow food now. There is no acute bleeding down the posterior pharyngeal wall. The remainder of the head and neck exam and physical exam is unchanged since last visit. ASSESSMENT: Epistaxis. PLAN: I will continue to follow this patient on a daily basis with you. MMODL / IJN: [id number] /
[2022-12-23] MEDS: FLUTICASONE 44 MCG INHALER INHALATION SCH (08:25)
[2022-12-23] MEDS: CALCIUM CARB-VIT D 500 MG-5 MCG TAB PO SCH (09:13)
[2022-12-23] MEDS: MULTIVITAMINS, THERA 1 EACH TAB PO SCH (09:13)
[2022-12-23] MEDS: hydroCHLOROthiazide 25 MG TAB PO SCH (09:13)
[2022-12-23] MEDS: lisinopriL 20 MG TAB PO SCH ×2 (09:13→21:23)
[2022-12-23] MEDS: FOLIC ACID-VIT B COMPLEX-VIT C 1 CAP PO SCH (09:13)
[2022-12-23] MEDS: ACETAMINOPHEN TAB 325 MG TAB PO PRN ×2 (09:16→21:23)
[2022-12-23 11:07] LABS: Basophils # (A) 0.05 X 10*3/uL (0.00-0.10); Basophils % (A) 0.6 %; Eosinophils # (A) 0.22 X 10*3/uL (0.04-0.35); Eosinophils % (A) 2.5 %; HGB 10.6 d/dL (12.0-15.0); Lymphocytes # (A) 1.31 X 10*3/uL (0.90-5.00); Lymphocytes % (A) 14.6 %; MCH 29.2 pg (27.0-32.0); MCHC 32.1 d/dL (32.0-37.0); MCV 90.9 FL (80.0-97.0); Mean Platelet Volume 10.3 FL (9.5-12.2); Monocytes # (A) 0.44 X 10*3/uL (0.20-1.00); Monocytes % (A) 4.9 %; NRBC Per 100 WBC 0 X 10*3/uL (0.00-0.01); Neutrophils # (A) 6.91 X 10*3/uL (1.80-7.70); Neutrophils % (A) 77.2 %; Platelet Count 184 X 10*3/uL (140-440); RBC 3.63 X 10*6/uL (4.10-5.20); RDW 13.8 % (11.5-14.5); WBC 8.95 X 10*3/uL (4.50-10.00)
[2022-12-23 11:24] LABS: BUN/Creat Ratio 18.75 Ratio (12.00-20.00); Calcium 8.8 mg/dL (8.7-10.3); Carbon Dioxide 24.3 mmol/L (21.6-31.8); Chloride 106 mmol/L (96-109); Glucose 118 mg/dL (70-110); Potassium 4.1 mmol/L (3.5-5.5); Sodium 141 mmol/L (135-145)
--- NOTE | 2022-12-23 11:46 | P.PN ---
Subjective Progress Note Date: 12/23/22 Hospital Course: 77-year-old female with history of hypertension, dyslipidemia, asthma, prior ep istaxis presenting with acute epistaxis. In the ED, temperature was 98.6, blood pressure 137/80, saturating 95% on room air. Hemoglobin 12.6, coags within normal limits, creatinine 0.67. ENT consulted. Patient has nasal packing in place, will likely need to stay over the weekend and slowly withdraw the nasal packing by ENT. Subjective: Patient seen and examined at bedside. Has irritative nose due to nasal packing. Denies any other complaints. Pertinent positives and negatives as discussed above, a complete review of systems was performed and all other systems are negative. Vitals Signs Reviewed. General: nontoxic, no distress, appears at stated age Derm: warm, dry Head: atraumatic, normocephalic, symmetric Eyes: EOMI, no lid lag, anicteric sclera, pupils equal round reactive to light ENT: Has nasal packing in place, stained with blood Neck: No thyromegaly, supple Mouth: no lip lesion, mucus membranes moist Cardiovascular: S1S2 reg, no murmur, no edema Lungs: clear to auscultation bilateral, no rhonchi, no rales, no wheeze, no accessory muscle use Abdominal: soft, nontender to palpation, no guarding, no appreciable organomegaly Ext: no gross muscle atrophy, muscle strength muscle strength 5 out of 5 in all 4 extremities, no contractures Neuro: CN II-XII grossly intact Psych: Alert, oriented, appropriate affect Data Reviewed Today: Pertinent Labs: Hemoglobin 10.6, BUN 15 Imaging: No new imaging today Assessment and Plan: Active: Acute epistaxis Acute blood loss anemia Prerenal azotemia, resolved History of palpitations status post loop recorder -ENT following, will likely withdraw nasal packing slowly, plan to remove right- sided nasal packing today -ENT also started on levofloxacin IV every 24 hours and normal saline 100 mL an hour -Hemoglobin slowly down trended, possibly dilutional, repeat CBC tomorrow -Hemodynamically stable -Patient has an outpatient cardiology appointment set up Chronic: Hypertension Dyslipidemia Asthma DVT ppx: SCDs Code status: Full code Anticipated discharge place: Home Anticipated discharge time: Pending clinical course Objective - Vital Signs Vital signs: Vital Signs Temp 97.6 F 12/23/22 07:33 Pulse 95 12/23/22 07:33 Resp 14 12/23/22 07:33 BP 125/75 12/23/22 07:33 Pulse Ox 95 12/23/22 08:25 FiO2 28 12/22/22 07:40 Intake & Output 12/22/22 12/23/22 12/23/22 18:59 06:59 18:59 Intake Total 575 Balance 575 Intake: Oral 575 Other: Voiding Method Toilet Toilet Toilet # Voids 2 2 - Labs CBC & Chem 7: 12/23/22 05:53 12/23/22 05:53 Labs: Abnormal Lab Results - Last 24 Hours (Table) 12/23/22 12/23/22 Range/Units 05:53 05:53 RBC 3.63 L (4.10-5.20) X 10*6/uL Hgb 10.6 L (12.0-15.0) d/dL Hct 33.0 L (37.2-46.3) % Glucose 118 H (70-110) mg/dL
[2022-12-23] MEDS: LEVOFLOXACIN 750MG-D5W PMX 750 MG in DEXTROSE/WATER 1 150ML.BAG IVPB SCH (15:12)
[2022-12-23] MEDS: ALPRAZolam 0.5 MG TAB PO PRN (15:29)
[2022-12-23] MEDS: SODIUM CHLORIDE 0.9% 1,000 ML IV SCH (19:30)
[2022-12-23] MEDS: EZETIMIBE 10 MG TAB PO SCH (21:22)
[2022-12-23] MEDS: ATORVASTATIN 40 MG TAB PO SCH (21:22)
[2022-12-23] MEDS: VERAPAMIL SR 120 MG TABLET.ER PO SCH (21:23)
[2022-12-24 06:42] LABS: HCT 31.6 % (34.0-46.0); MCH 31.2 pg (25.0-35.0); MCHC 34.7 g/dL (31.0-37.0); Platelet Count 158 k/uL (150-450); RBC 3.51 m/uL (3.80-5.40); RDW 14.2 % (11.5-15.5); WBC 9.3 k/uL (3.8-10.6)
[2022-12-24 07:01] LABS: Band Neutrophils % 1 %; Eosinophils # (M) 0.28 k/uL (0-0.7); Lymphocytes # (M) 2.14 k/uL (1.0-4.8); Monocytes # (M) 0.28 k/uL (0-1.0); Neutrophils % (M) 70 %; Nucleated Red Blood Cells 0 /100 WBC (0-0); Total Cells Counted 100
[2022-12-24] MEDS: ALPRAZolam 0.5 MG TAB PO PRN ×2 (08:26→20:21)
[2022-12-24] MEDS: MULTIVITAMINS, THERA 1 EACH TAB PO SCH (08:26)
[2022-12-24] MEDS: ACETAMINOPHEN TAB 325 MG TAB PO PRN ×2 (08:26→20:21)
[2022-12-24] MEDS: FOLIC ACID-VIT B COMPLEX-VIT C 1 CAP PO SCH (08:26)
[2022-12-24] MEDS: CALCIUM CARB-VIT D 500 MG-5 MCG TAB PO SCH (08:26)
[2022-12-24] MEDS: lisinopriL 20 MG TAB PO SCH ×2 (08:26→20:18)
[2022-12-24] MEDS: SODIUM CHLORIDE 0.9% 1,000 ML IV SCH ×3 (08:27→16:18)
[2022-12-24] MEDS: FLUTICASONE 44 MCG INHALER INHALATION SCH (09:00)
--- NOTE | 2022-12-24 11:16 | P.PN ---
Subjective Progress Note Date: 12/24/22 Patient is a 77-year-old female with hypertension, dyslipidemia, asthma, and prior epistaxis events who presented with acute epistaxis. She initially presented to [facility] and was transferred her for ENT evaluation. In the ED, temperature was 98.6, blood pressure 137/80, saturating 95% on room air. Hemoglobin 12.6, coags within normal limits, creatinine 0.67. She was admitted for further monitoring. ENT was consulted. They recommended continued back and antibiotics. Patient seen and examined at bedside. She is doing fairly well. She does complain of some pressure from the nasal packing. Denies any nausea or vomiting. Vital signs reviewed General: nontoxic, no distress, appears at stated age Cardiovascular: S1S2 reg, no murmur, positive posterior tibial pulse bilateral, Lungs: Decreased breath sounds bilateral, no rhonchi, no rales , no accessory mu scle use Abdominal: soft, nontender to palpation, no guarding, no appreciable organomegaly Ext: no gross muscle atrophy, no edema b/l lower extremities, no contractures Neuro: CN II-XI grossly intact, no focal neuro deficits Psych: Alert, oriented, appropriate affect Assessment/Plan: Acute epistaxis Acute blood loss anemia - Await further ENT recs - Continue with Levaquin 750 mg daily IVPB - repeat CBC in AM HTN - continue lisinopril 20 mg PO BID, Verapamil 120 mg at night HLD - statin Prerenal azotemia, resolved History of palpitations status post loop recorder Imaging: None new Data Review: Vitals reviewed temperature 97.7, pulse 83, respirations 18, blood pressure 116/65, O2 sat 94% on room air Labs reviewed and remarkable for hemoglobin of 11 (up from 10.6 yesterday) DVT prophylaxis: early ambulation Anticipated discharge date: Pending Clinical Course Anticipated discharge place: Pending Clinical Course This dictation was prepared using [employer] voice recognition software. Though every attempt is made to correct errors during dictation some may still exist. Objective - Vital Signs Vital signs: Vital Signs Temp 97.7 F 12/24/22 07:18 Pulse 83 12/24/22 07:18 Resp 18 12/24/22 07:18 BP 116/65 12/24/22 07:18 Pulse Ox 94 L 12/24/22 08:59 FiO2 21 12/24/22 08:59 Intake & Output 12/23/22 12/24/22 12/24/22 18:59 06:59 18:59 Other: Voiding Method Toilet Toilet Toilet # Voids 1 - Labs CBC & Chem 7: 12/24/22 06:18 12/23/22 05:53 Labs: Abnormal Lab Results - Last 24 Hours (Table) 12/23/22 12/24/22 Range/Units 05:53 06:18 RBC 3.51 L (3.80-5.40) m/uL Hgb 11.0 L (11.4-16.0) gm/dL Hct 31.6 L (34.0-46.0) % Glucose 118 H (70-110) mg/dL
[2022-12-24] MEDS: OXYMETAZOLINE 0.05% NASL SPRAY 1 SPRAY BOTTLE NASAL SCH ×2 (16:18→20:18)
[2022-12-24] MEDS: LEVOFLOXACIN 750MG-D5W PMX 750 MG in DEXTROSE/WATER 1 150ML.BAG IVPB SCH (16:18)
[2022-12-24] MEDS: VERAPAMIL SR 120 MG TABLET.ER PO SCH (20:18)
[2022-12-24] MEDS: ATORVASTATIN 40 MG TAB PO SCH (20:18)
[2022-12-24] MEDS: EZETIMIBE 10 MG TAB PO SCH (20:18)
[2022-12-25] MEDS: SODIUM CHLORIDE 0.9% 1,000 ML IV SCH (03:42)
[2022-12-25 07:39] VITALS: RESP 18
[2022-12-25 08:23] LABS: HCT 32.5 % (34.0-46.0); MCH 30.5 pg (25.0-35.0); MCHC 33.8 g/dL (31.0-37.0); MCV 90.2 fL (80.0-100.0); Mean Platelet Volume 8.2; Platelet Count 163 k/uL (150-450); RBC 3.61 m/uL (3.80-5.40); RDW 13.9 % (11.5-15.5); WBC 7.4 k/uL (3.8-10.6)
[2022-12-25] MEDS: FOLIC ACID-VIT B COMPLEX-VIT C 1 CAP PO SCH (09:05)
[2022-12-25] MEDS: CALCIUM CARB-VIT D 500 MG-5 MCG TAB PO SCH (09:05)
[2022-12-25] MEDS: hydroCHLOROthiazide 25 MG TAB PO SCH (09:05)
[2022-12-25] MEDS: MULTIVITAMINS, THERA 1 EACH TAB PO SCH (09:05)
[2022-12-25] MEDS: lisinopriL 20 MG TAB PO SCH ×2 (09:05→20:13)
[2022-12-25] MEDS: OXYMETAZOLINE 0.05% NASL SPRAY 1 SPRAY BOTTLE NASAL SCH ×3 (09:05→20:13)
--- NOTE | 2022-12-25 14:05 | P.PN ---
Subjective Progress Note Date: 12/25/22 Patient is a 77-year-old female with hypertension, dyslipidemia, asthma, and prior epistaxis events who presented with acute epistaxis. She initially presented to [facility] and was transferred her for ENT evaluation. In the ED, temperature was 98.6, blood pressure 137/80, saturating 95% on room air. Hemoglobin 12.6, coags within normal limits, creatinine 0.67. She had to Rhino Rocket placed bilaterally. She was admitted for further monitoring. ENT was consulted. They recommended continued Rhino Rocket and antibiotics. Her right Rhino Rocket was removed on 12/24 in her left hand the air was removed. Patient seen and examined at bedside. She is feeling better now that her Rhino Rocket has been removed from the right naris in the left naris balloon has been deflated. She has any recurrent bleeding. Vital signs reviewed General: nontoxic, no distress, appears at stated age Cardiovascular: S1S2 reg, no murmur, positive posterior tibial pulse bilateral, Lungs: Decreased breath sounds bilateral, no rhonchi, no rales , no accessory muscle use Abdominal: soft, nontender to palpation, no guarding, no appreciable organomegaly Ext: no gross muscle atrophy, no edema b/l lower extremities, no contractures Neuro: CN II-XI grossly intact, no focal neuro deficits Psych: Alert, oriented, appropriate affect Assessment/Plan: Acute epistaxis Acute blood loss anemia - Await further ENT recs, possible removal of left packing today per nursing. - Continue with Levaquin 750 mg daily IVPB HTN - continue lisinopril 20 mg PO BID, Verapamil 120 mg at night HLD - statin Prerenal azotemia, resolved History of palpitations status post loop recorder Imaging: None new Data Review: Vitals reviewed temperature 90.5, respirations 18, pulse 62, blood pressure 120/58, O2 sats 99% on room air Labs reviewed remarkable for hemoglobin of 11 DVT prophylaxis: early ambulation Anticipated discharge date: <[address]: Pending Clinical Course This dictation was prepared using [employer] voice recognition software. Though every attempt is made to correct errors during dictation some may still exist. Objective - Vital Signs Vital signs: Vital Signs Temp 97.5 F L 12/25/22 12:14 Pulse 81 12/25/22 12:14 Resp 18 12/25/22 12:14 BP 111/55 12/25/22 12:14 Pulse Ox 95 12/25/22 12:14 FiO2 21 12/25/22 09:04 Intake & Output 12/24/22 12/25/22 12/25/22 18:59 06:59 18:59 Other: Voiding Method Toilet Toilet Toilet # Voids 3 1 - Labs CBC & Chem 7: 12/25/22 06:27 12/23/22 05:53 Labs: Abnormal Lab Results - Last 24 Hours (Table) 12/25/22 Range/Units 06:27 RBC 3.61 L (3.80-5.40) m/uL Hgb 11.0 L (11.4-16.0) gm/dL Hct 32.5 L (34.0-46.0) %
[2022-12-25] MEDS: LEVOFLOXACIN 750MG-D5W PMX 750 MG in DEXTROSE/WATER 1 150ML.BAG IVPB SCH (16:30)
[2022-12-25] MEDS: EZETIMIBE 10 MG TAB PO SCH (20:13)
[2022-12-25] MEDS: ACETAMINOPHEN TAB 325 MG TAB PO PRN (20:13)
[2022-12-25] MEDS: ATORVASTATIN 40 MG TAB PO SCH (20:13)
[2022-12-25] MEDS: VERAPAMIL SR 120 MG TABLET.ER PO SCH (20:13)
--- NOTE | 2022-12-26 02:51 | PN ---
PROGRESS NOTE DATE OF SERVICE: 12/23/2022 SUBJECTIVE: Vital signs are stable. The patient has not had any further bleeding since her admission on 12/21/2022. Both nasal packings are intact and appeared to be dry. She apparently eventually passed a large blood clot and probably swallowed it that was located on the nasopharynx. She is now able to eat. OBJECTIVE: HEENT: The patient is normocephalic. Intranasal examination reveals both nasal balloons are intact and dry. The right Rhino Rocket nasal balloon was removed without incident. Remainder of the head and neck exam is unremarkable. ASSESSMENT: Epistaxis. PLAN: We will start the patient on Afrin nasal spray 2 puffs in the right nostril 3 times daily. We will maintain the Rhino Rocket that is located in the left naris for now. I will see the patient again tomorrow on 12/24/2022. Approximate time spent with patient is 15 minutes. DUKEL / IJN: [id number] / MTDD
--- NOTE | 2022-12-26 02:54 | PN ---
PROGRESS NOTE DATE OF SERVICE: 12/24/2022 SUBJECTIVE: Vital signs stable. The patient is resting comfortably. She has not had any further bleeding. The right nostril where the Rhino Rocket was removed is dry. OBJECTIVE: HEENT: The patient is normocephalic. Tympanic membranes are normal. Examination of the right naris reveals no evidence of any active bleeding, but there is quite a bit of mucus in the right naris. The nasal balloon and the Rhino Rocket that were located in the left naris/nostril was completely deflated, but the left Rhino Rocket has been left in place for now. Remainder of physical exam is unremarkable. ASSESSMENT: Epistaxis. PLAN: I will see the patient again on 12/26/2023. Time spent with patient 15 minutes. MMODL / IJN: [id number] / MTDD
--- NOTE | 2022-12-26 03:09 | PN ---
PROGRESS NOTE DATE OF SERVICE: 12/25/2022 SUBJECTIVE: Vital signs stable. No further active bleeding. OBJECTIVE: HEENT: The patient is normocephalic. Examination of the right naris is unremarkable. The Rhino Rocket balloon, which had previously been deflated in the left naris was completely removed without incident. There was no active bleeding after removal of this packing. Inspection of the oropharynx/nasopharynx did not reveal any evidence of any active bleeding. PLAN: We will now have the nursing staff place Afrin nasal spray 2 puffs in each nostril 3 times daily. I anticipate that unless the patient has any further significant active bleeding, she will be able to be discharged home tomorrow. I will dictate special ENT discharge instructions for the patient. I have advised her not to blow her nose for the next 2 weeks. If she feels there is mucus in her nose, she can sniff it back and spit it out. I have also advised her to open her mouth if she has to sneeze for the next 2 weeks. She is going to be using the Afrin nasal spray 3 times daily (after breakfast, after dinner, and before bedtime) for the next 7 days after her discharge. She has been advised to avoid all strenuous activity or any straining. I advised the patient that it is normal for her to experience minor nasal bleeding for the next 7- 10days after her discharge from the hospital. 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 I advised her to refrain from this activity. If she feels that her nose is dry, then she can put a dab of Vaseline petroleum jelly in one or both nostrils prn. She has also been advised to avoid all saline sprays, Flonase, ocean spray, etc. All of these nasal sprays are very drying and may promote bleeding. She mentioned that she is being evaluated for possible atrial fibrillation and may be placed on a blood thinner. I have advised her that this should not be a problem as long as the blood thinner is not Coumadin or warfarin. It is normal for patients with septal perforations to intermittently have minor bleeding because of the crusting that occurs around the perforation. Unfortunately, despite all the efforts in my specialty over the years, we have not found a successful method of closing these perforations. I want to take this opportunity to thank you for allowing me to assist in the care of your patient. If I could be of any further assistance, please feel free to call my office. Again, I have dictated especially ENT discharge instructions and I also left a prescription for Omnicef capsules 300 mg to be taken twice daily. Although the patient has a penicillin allergy, specifically with Augmentin, it is noted that the 3rd degeneration cephalosporins, such as Omnicef, are safe for these type of patients to take. They do not have to worry about an allergic reaction. Time spent with patient approximately 30 minutes. MMODL / IJN: [id number] / KWAME
[2022-12-26] MEDS: CALCIUM CARB-VIT D 500 MG-5 MCG TAB PO SCH (08:36)
[2022-12-26] MEDS: lisinopriL 20 MG TAB PO SCH (08:36)
[2022-12-26] MEDS: MULTIVITAMINS, THERA 1 EACH TAB PO SCH (08:36)
[2022-12-26] MEDS: FOLIC ACID-VIT B COMPLEX-VIT C 1 CAP PO SCH (08:36)
[2022-12-26] MEDS: OXYMETAZOLINE 0.05% NASL SPRAY 1 SPRAY BOTTLE NASAL SCH (08:37)
[2022-12-26] MEDS: FLUTICASONE 44 MCG INHALER INHALATION SCH (08:39)
--- NOTE | 2022-12-26 08:45 | P.DS ---
Providers Date of admission: 12/22/22 12:11 Expected date of discharge: 12/26/22 Attending physician: Mirta Jc MD Consults: 12/21/22 05:10 Consult Physician Routine Consulting Provider: Geronimo Rosario Consult Reason/Comments: epistaxis Do you want consulting provider notified?: Already Contacted [facility] Course: Discharge Diagnosis: Acute epistaxis Acute blood loss anemia HTN HLD Prerenal azotemia, resolved History of palpitations status post loop recorder Hospital Course: Patient is a 77-year-old female with hypertension, dyslipidemia, asthma, and prior epistaxis events who presented with acute epistaxis. She initially presented to [facility] and was transferred her for ENT evaluation. In the ED, temperature was 98.6, blood pressure 137/80, saturating 95% on room air. Hemoglobin 12.6, coags within normal limits, creatinine 0.67. She had to Rhino Rocket placed bilaterally. She was admitted for further monitoring. ENT was consulted. They recommended continued Rhino Rocket and antibiotics. Her right Rhino Rocket was removed on 12/24 in her left rhino rocket was removed on 12/25. She was monitored overngiht without any significant anterior nasal bleeding noted. She was determined stable for discharge. Follow-up: Dr. Rosario give her detailed discharge instructions, please see below. She will follow-up with Dr. Mcknight later this week. Patient seen and examined at bedside. She is doing well. She has not complaints currently. No significant nasal bleeding. Minimal cough. No nausea. Vital signs reviewed and stable. General: nontoxic, no distress, appears at stated age ENT: Dried blood in right and left nare, some liquified blood posteior left throat. Cardiovascular: S1S2 reg, no murmur, positive posterior tibial pulse bilateral, Lungs: CTA bilateral, no rhonchi, no rales , no accessory muscle use Abdominal: soft, nontender to palpation, no guarding, no appreciable organomegaly Ext: no gross muscle atrophy, no edema b/l lower extremities, no contractures Neuro: CN II-XI grossly intact, no focal neuro deficits Psych: Alert, oriented, appropriate affect A total of 35 minutes of time were spent preparing this complex discharge summary. Patient was discharged on 12/26/22. This dictation was prepared using [employer] voice recognition software. Though every attempt is made to correct errors during dictation some may still exist. Patient Condition at Discharge: Fair Plan - Discharge Summary Discharge Rx Participant: Yes New Discharge Prescriptions: No Action Fluticasone Propionate [Flovent Hfa 44 mcg] 1 puff INHALATION RT-DAILY Fluticasone Nasal Slovan [Flonase Nasal Slovan] 1 spr EA NOSTRIL DAILY Cetirizine HCl [Zyrtec] 10 mg PO HS Vitamin B Complex 1 cap PO DAILY Multivitamins, Thera [Multivitamin (formulary)] 1 tab PO DAILY Wheat Dextrin [Benefiber] 1 - 2 tsp PO DAILY Albuterol Sulfate [Ventolin HFA] 2 puff INHALATION RT-Q4H PRN PRN Reason: Shortness Of Breath Calcium Carbonate/Vitamin D3 [Calcium 600-D3 20 mcg (800 Unit)] 1 tab PO DAILY Verapamil HCl [Verapamil ER] 120 mg PO HS hydroCHLOROthiazide [Hydrodiuril] 25 mg PO Q2D Ezetimibe [Zetia] 10 mg PO HS Rosuvastatin [Crestor] 20 mg PO HS Aspirin EC [Ecotrin Low Dose] 81 mg PO HS lisinopriL [Zestril] 20 mg PO BID Discharge Medication List Cetirizine HCl [Zyrtec] 10 mg PO HS 06/05/17 [History] Fluticasone Nasal Slovan [Flonase Nasal Slovan] 1 spr EA NOSTRIL DAILY 06/05/17 [History] Fluticasone Propionate [Flovent Hfa 44 mcg] 1 puff INHALATION RT-DAILY 06/05/17 [History] Multivitamins, Thera [Multivitamin (formulary)] 1 tab PO DAILY 06/05/17 [History] Vitamin B Complex 1 cap PO DAILY 06/05/17 [History] Albuterol Sulfate [Ventolin HFA] 2 puff INHALATION RT-Q4H PRN 08/31/21 [History] Aspirin EC [Ecotrin Low Dose] 81 mg PO HS 08/31/21 [History] Calcium Carbonate/Vitamin D3 [Calcium 600-D3 20 mcg (800 Unit)] 1 tab PO DAILY 08/31/21 [History] Verapamil HCl [Verapamil ER] 120 mg PO HS 08/31/21 [History] Wheat Dextrin [Benefiber] 1 - 2 tsp PO DAILY 08/31/21 [History] Ezetimibe [Zetia] 10 mg PO HS 12/21/22 [History] Rosuvastatin [Crestor] 20 mg PO HS 12/21/22 [History] hydroCHLOROthiazide [Hydrodiuril] 25 mg PO Q2D 12/21/22 [History] lisinopriL [Zestril] 20 mg PO BID 12/21/22 [History] Follow up Appointment(s)/Referral(s): Laura Mcknight MD [Primary Care Provider] - 1-2 days Geronimo Rosario MD [STAFF PHYSICIAN] - 1 Week Activity/Diet/Wound Care/Special Instructions: Special ENT discharge instructions: 1. Please review/read all discharge instructions. 2.You may resume a normal diet, most activities around the home, please avoid any strenuous activities or exercise. 3. You may resume all previous home medications including: Aspirin, Motrin, ibuprofen, Advil, Tylenol, Aleve, etc. It is okay for you to shower, shampoo your hair, and take baths as usual. 4. Do not blow your nose, as per Dr. Rosario's instructions, for the next 2 weeks after your discharge to home. If you feel there is mucus/snot in your nose, you may sniff it back and spit it out. Also, if you have to sneeze please do so with your mouth open. Definitely do not pick your nose. 5. Do not use any type of nasal sprays such as Flonase, Saline, [place], [place] etc . in your nose. If you feel your nose is dry you may simply place a dab of Vaseline petroleum jelly in each nostril one once or twice daily. You should avoid all strenuous activity or exercise. 6. The nursing staff will give you the remaining bottle of Afrin nasal spray which you should use 2 puffs in each nostril 3 times daily (in the morning, after dinner, and before you go to bed), for the next 7 days after your discharge from the hospital. 7. You have been given a prescription for a oral antibiotic, Omnicef 300 mg, which you should begin taking, as prescribed twice daily, beginning on the evening after your discharge from the hospital and continue to take this medication for approximately 7 days. 8. The nursing staff will give you any remaining eye patches and tape which you can take home and use to make a nasal dressing's, as demonstrated to you by Dr. Rosario while you're not while you're in the hospital, on a as needed basis. If you're not having any nasal drainage drainage then you do not have wear any type of nasal dressing. Your nose will tend to drain quite a bit for the next 4-7 days and that is normal. Some of this drainage will have old, liquefied, blood present. 9. If you wish to make an appointment with my office for a follow-up visit, you may do so but please be aware that( as I mentioned to you in the hospital) my office unfortunately does not participate with your insurance. Discharge Disposition: HOME SELF-CARE
[2022-12-26 09:30] LABS: HCT 32.9 % (34.0-46.0); HGB 11.1 gm/dL (11.4-16.0); MCH 30.4 pg (25.0-35.0); MCHC 33.6 g/dL (31.0-37.0); MCV 90.5 fL (80.0-100.0); Mean Platelet Volume 8.9; Platelet Count 173 k/uL (150-450); RBC 3.63 m/uL (3.80-5.40); WBC 5.6 k/uL (3.8-10.6)
[2022-12-26 11:59] VITALS: BP 146/74; PULSE 62; TEMP 98.1
== END 2022-12-26 15:06 | disposition home or self-care (01) | DRG 155 ==
LOC: EC 04:26 → 5NMEDONC 05:16 → OBSVTOIN 12-22 12:11
PROVIDERS: ADMIT Internal Medicine; ATTEND Internal Medicine
DX: J34.89 Other specified disorders of nose and nasal sinuses (principal); D62 Acute posthemorrhagic anemia; I10 Essential (primary) hypertension; J43.9 Emphysema, unspecified; E78.00 Pure hypercholesterolemia, unspecified; J34.2 Deviated nasal septum; R04.0 Epistaxis; R79.89 Other specified abnormal findings of blood chemistry; Z95.818 Presence of other cardiac implants and grafts; Z79.51 Long term (current) use of inhaled steroids; Z79.899 Other long term (current) drug therapy; Z79.82 Long term (current) use of aspirin; Z87.891 Personal history of nicotine dependence; Z88.0 Allergy status to penicillin
CPT/HCPCS: 80048; 80053; 85025; 85027; 85610; 85730; 86850; 86900; 86901; 94640; 94760; 99285

== ENCOUNTER → 2023-08-03 | Outpatient (CLI) | payer MEDICARE ==
--- NOTE | 2023-08-03 15:17 | MM ---
Reason for Exam: Screening (asymptomatic). Last mammogram was performed 1 year(s) and 2 month(s) ago. Patient History: Menarche at age 13. First Full-Term at age 24. Premenopausal. Estrogen for 1 year from age 55 until age 56. 2001, Benign Excisional Biopsy on the left side. Paternal cousin had ovarian cancer, age 80. Risk Values: Norma 5 year model risk: 1.9%. NCI Lifetime model risk: 3.8%. Prior Study Comparison: 03/23/2020 Bilateral Screening Mammogram, [facility]. 05/05/2021 Bilateral Screening Mammogram, [facility]. 05/19/2022 Bilateral MG 3D screening mammo w/cad, [facility]. Tissue Density: The breast tissue is almost entirely fat. Findings: Analyzed By CAD. There is no suspicious group of microcalcifications or new suspicious mass. Overall Assessment: Negative, BI-RAD 1 Management: Screening Mammogram of both breasts in [address] [facility] will attempt to contact patient to return for supplemental views and ultrasound if indicated. Patient should continue monthly self-breast exams. A clinical breast exam by your physician is recommended on an annual basis. This exam should not preclude additional follow-up of suspicious palpable abnormalities. Note on Norma scores and lifetime risk: 1. A Norma score greater than 3% is considered moderate risk. If this is the case, consider specialist referral to assess eligibility for a risk reducing agent. 2. If overall lifetime risk for the development of breast cancer is 20% or higher, the patient may qualify for future screening with alternating mammogram and breast MRI. Electronically signed and approved by: Doug Marcano DO
== END | disposition home or self-care (01) ==
LOC: RADMAMWWP 10:27
PROVIDERS: ATTEND Family Medicine
DX: Z12.31 Encounter for screening mammogram for malignant neoplasm of breast (principal)
CPT/HCPCS: 77063; 77067

== ENCOUNTER → 2024-08-07 | Outpatient (CLI) | payer MEDICARE ==
--- NOTE | 2024-08-07 17:14 | MM ---
Reason for Exam: Screening (asymptomatic). Last mammogram was performed 1 year(s) and 1 month(s) ago. Patient History: Menarche at age 13. First Full-Term at age 24. Premenopausal. Estrogen for 1 year from age 55 until age 56. 2001, Benign Excisional Biopsy on the left side. Paternal cousin had ovarian cancer, age 80. Risk Values: Norma 5 year model risk: 1.8%. NCI Lifetime model risk: 3.5%. Prior Study Comparison: 05/05/2021 Bilateral Screening Mammogram, [facility]. 05/19/2022 Bilateral MG 3D screening mammo w/cad, [facility]. 08/03/2023 Bilateral MG 3D screening mammo w/cad, [facility]. Tissue Density: The breasts are almost entirely fatty. Findings: Analyzed By CAD. Chronic subareolar nodularity on the right. There is no suspicious group of microcalcifications or new suspicious mass in either breast. Overall Assessment: Negative, BI-RAD 1 Management: Screening Mammogram of both breasts in 1 year. Patient should continue monthly self-breast exams. A clinical breast exam by your physician is recommended on an annual basis. This exam should not preclude additional follow-up of suspicious palpable abnormalities. Note on Norma scores and lifetime risk: 1. A Norma score greater than 3% is considered moderate risk. If this is the case, consider specialist referral to assess eligibility for a risk reducing agent. 2. If overall lifetime risk for the development of breast cancer is 20% or higher, the patient may qualify for future screening with alternating mammogram and breast MRI. [facility], , 08/07/2024 5:11 PM. Electronically signed and approved by: Hany Coleman M.D. Radiologist
== END | disposition home or self-care (01) ==
LOC: RADMAMWWP 10:40
PROVIDERS: ATTEND Family Medicine
DX: Z12.31 Encounter for screening mammogram for malignant neoplasm of breast (principal); R92.313 Mammographic fatty tissue density, bilateral breasts
CPT/HCPCS: 77063; 77067